=== PATIENT | female | born 1960 | race Caucasian/White ===

== ENCOUNTER → 2016-07-18 | Outpatient (CLI) | payer BC ==
[~2016-07-18] MED LIST: ALBUAER9 INH; TRAM-10 PO
== END | disposition home or self-care (01) ==
LOC: C.RDSM 13:48
PROVIDERS: ATTEND Family Medicine Sports Medicine
DX: M25.552 Pain in left hip (principal)

== ENCOUNTER → 2016-08-14 | Outpatient (CLI) | payer BC ==
--- NOTE | 2016-08-14 14:59 | DIAGNOSTIC IMAGING REPORT ---
CERVICAL SPINE 6 VIEWS HISTORY: Pain L40.9 YvahdblpmF97.50 QncnwqdwuhaczsE95.559 Chronic hip pain COMPARISON: None. FINDINGS: The cervical spine is visualized from C1 through the superior endplate of T1. There is no fracture. Mild reversal of the normal cervical curvature. Moderate degenerative disc change C5-C6. All remaining disc spaces are well-preserved. Prevertebral soft tissues and the atlantodens interval are intact. IMPRESSION: 1. Muscle spasm. 2. Moderate degenerative disc change C5-C6. 3. Otherwise negative study Electronically signed by: Ernie Almeida M.D. 08/14/2016 2:57 PM Dictated Date/Time: 08/14/2016 2:56 PM
--- NOTE | 2016-08-14 15:01 | DIAGNOSTIC IMAGING REPORT ---
LEFT HAND MIN 3 VIEWS ROUTINE, RIGHT HAND MIN 3 VIEWS ROUTINE CLINICAL HISTORY: L40.9 DkxeiamtrW91.50 NshilkkkctrcirC50.559 Chronic hip pain COMPARISON STUDY: Left hand 01/10/2013. FINDINGS: No fracture or dislocation within the right or left hand. Soft tissues are unremarkable. Cartilage spaces are maintained for age. No erosions. Bone mineralization is intact. IMPRESSION: Unremarkable bilateral hands. Electronically signed by: Arnoldo Ramirez M.D. 08/14/2016 2:59 PM Dictated Date/Time: 08/14/2016 2:57 PM
--- NOTE | 2016-08-14 15:01 | DIAGNOSTIC IMAGING REPORT ---
LEFT HAND MIN 3 VIEWS ROUTINE, RIGHT HAND MIN 3 VIEWS ROUTINE CLINICAL HISTORY: L40.9 LivpykjreP65.50 GvrkudznfhqkgjT77.559 Chronic hip pain COMPARISON STUDY: Left hand 01/10/2013. FINDINGS: No fracture or dislocation within the right or left hand. Soft tissues are unremarkable. Cartilage spaces are maintained for age. No erosions. Bone mineralization is intact. IMPRESSION: Unremarkable bilateral hands. Electronically signed by: Arnoldo Ramirez M.D. 08/14/2016 2:59 PM Dictated Date/Time: 08/14/2016 2:57 PM
--- NOTE | 2016-08-14 15:01 | DIAGNOSTIC IMAGING REPORT ---
SI JOINTS 3 OR MORE VIEWS CLINICAL HISTORY: L40.9 WlautaskfU98.50 TqkqmjkqpgotgiX11.559 Chronic hip pain pain COMPARISON STUDY: None FINDINGS: Mild degenerative changes of the sacral iliac joint bilaterally. Slight mid sacral sclerosis of the right. No significant bony ankylosis. Sacral foramina are symmetric. IMPRESSION: Mild degenerative change of the central right sacroiliac joint. Otherwise negative study Electronically signed by: Ernie Almeida M.D. 08/14/2016 2:59 PM Dictated Date/Time: 08/14/2016 2:58 PM
[2016-08-14 16:41] LABS: C-REACTIVE PROTEIN < 0.29 mg/dl (0-0.29); RHEUMATOID FACTOR < 10.0 U/mL (0-15); TOTAL IRON BINDING CAPACITY 298 mcg/dl (250-450)
[2016-08-20 02:35] LABS: ANTI-CENTROMERE AB <1.0 NEG AI (<1.0 NEG); ANTI-SS-A <1.0 NEG AI (<1.0 NEG); ANTI-SS-B <1.0 NEG AI (<1.0 NEG); DNA ds CRITHIDIA NEGATIVE (NEGATIVE); HLA-B27** TC 528X NEGATIVE (NEGATIVE); Sm Antibody <1.0 NEG AI (<1.0 NEG)
== END | disposition home or self-care (01) ==
LOC: C.RAD1850 14:15
PROVIDERS: ATTEND Internal Medicine Rheumatology
DX: L40.9 Psoriasis, unspecified (principal); M25.559 Pain in unspecified hip

== ENCOUNTER → 2016-08-15 | Outpatient (CLI) | payer BC ==
--- NOTE | 2016-08-15 14:56 | DIAGNOSTIC IMAGING REPORT ---
WHOLE BODY BONE SCAN HISTORY: L40.9 ZhdaqnwxsH05.50 FuuhipwietissbC24.559 Chronic hip painTota RADIOTRACER: 27.3 mCi Tc-99m MDP STUDY/IMAGES: Planar anterior and posterior whole body imaging was performed 3 hours following the intravenous administration of radiotracer. COMPARISON: Left hip 07/18/2016. Cervical spine 08/14/2016. FINDINGS: Focal areas of mild radiotracer uptake seen within the right mid cervical spine facets, right AC joint, and right superior hip. There is also moderate radiotracer uptake seen within the left hip. Small focal area of mild radiotracer uptake seen within the left heel. IMPRESSION: Scattered focal areas of radiotracer uptake as described above most pronounced within the left hip. The pattern favors osteoarthritis. Electronically signed by: Arnoldo Ramirez M.D. 08/15/2016 2:53 PM Dictated Date/Time: 08/15/2016 2:48 PM
== END | disposition home or self-care (01) ==
LOC: C.NUCL 10:43
PROVIDERS: ATTEND Internal Medicine Rheumatology
DX: L40.9 Psoriasis, unspecified (principal); M25.559 Pain in unspecified hip

== ENCOUNTER → 2016-08-16 | Outpatient (CLI) | payer BC ==
--- NOTE | 2016-08-16 15:07 | DIAGNOSTIC IMAGING REPORT ---
MRI THE LEFT HIP NO CONTRAST CLINICAL HISTORY: Increasing left hip pain. History of long-term steroid use. Osteoarthritis. Psoriasis. COMPARISON STUDY: Whole-body bone scan dated 08/15/2016, left hip dated 07/18/2016 FINDINGS: Imaging was performed in the coronal sagittal and axial planes. 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 There is no evidence for a pathologic joint effusion. There is joint space narrowing involving both hips. There are prominent subchondral cysts within the left acetabulum with reactive marrow edema. There is a small subchondral cyst within the right acetabulum. There are no findings to indicate avascular necrosis. There are no findings to indicate occult fracture. There is no evidence of pathologic intramuscular edema. IMPRESSION: 1. No evidence of avascular necrosis 2. No evidence of occult fracture 3. Arthritic changes involving each hip more severe on the left. There is joint space narrowing, and prominent subchondral acetabular cyst formation. There are small femoral head osteophytes more pronounced on the left. 4. Right gluteus minimus lipoma Electronically signed by: Taras Garcia M.D. 08/16/2016 3:05 PM Dictated Date/Time: 08/16/2016 2:58 PM
== END | disposition home or self-care (01) ==
LOC: C.MRI 13:47
PROVIDERS: ATTEND Family Medicine Sports Medicine
DX: M16.0 Bilateral primary osteoarthritis of hip (principal); D17.39 Benign lipomatous neoplasm of skin and subcutaneous tissue of other sites

== ENCOUNTER → 2016-09-06 | Outpatient (CLI) | payer BC | END | disposition home or self-care (01) | LOC: C.PAPS 12:34 | PROVIDERS: ATTEND Obstetrics & Gynecology | DX: Z12.4 Encounter for screening for malignant neoplasm of cervix (principal) ==

== ENCOUNTER → 2016-09-11 | Outpatient (CLI) | payer BC ==
--- NOTE | 2016-09-11 13:16 | MAMMOGRAPHY REPORT ---
BILATERAL DIGITAL SCREENING MAMMOGRAM TOMOSYNTHESIS WITH CAD: 09/11/2016 CLINICAL HISTORY: Routine screening. Patient has no complaints. TECHNIQUE: Bilateral breast tomosynthesis in addition to standard 2D mammography was performed. Curr ent study was also evaluated with a Computer Aided Detection (CAD) system. COMPARISON: Comparison is made to exams dated: 09/05/2015 mammogram, 09/02/2014 mammogram, 07/10/2013 ma mmogram, 07/09/2012 mammogram, 01/15/2011 mammogram, and 01/12/2010 mammogram - [facility] [address] enter. BREAST COMPOSITION: The tissue of both breasts is heterogeneously dense, which may obscure small ma sses. FINDINGS: There is an asymmetry in the superior posterior left breast on the MLO view, with possibl e associated architectural distortion. This is thought to project laterally based on the CC view. Although this could represent overlapping fibroglandular tissue, additional spot compression, synthe sis views and possibly ultrasound are recommended. There are scattered stable rounded punctate microcalcifications throughout the breasts. No other owens spicious mass, architectural distortion or cluster of microcalcifications is seen bilaterally. IMPRESSION: ACR BI-RADS CATEGORY 0: INCOMPLETE EVALUATION: NEED ADDITIONAL IMAGING EVALUATION The asymmetry in the superior, posterior left breast needs additional evaluation. The patient will be called to schedule an appointment. Approximately 10% of breast cancers are not detected with mammography. A negative mammographic repor t should not delay biopsy if a clinically suggestive mass is present. Kylee Moreno M.D. ay/:09/11/2016 08:23:03 Supervisor Cigar Processing: Diana LIZARRAGA(R)(M), [facility] letter sent: Addl Imaging 0 BI-RADS Code: ACR BI-RADS Category 0: Incomplete Evaluation: Need Additional Imaging Evaluation
== END | disposition home or self-care (01) ==
LOC: C.MAMM 07:49
PROVIDERS: ATTEND Obstetrics & Gynecology
DX: Z12.31 Encounter for screening mammogram for malignant neoplasm of breast (principal); N64.89 Other specified disorders of breast

== ENCOUNTER → 2016-09-20 | Outpatient (CLI) | payer BC ==
--- NOTE | 2016-09-20 14:07 | MAMMOGRAPHY REPORT ---
UNILATERAL LEFT DIGITAL DIAGNOSTIC MAMMOGRAM TOMOSYNTHESIS AND TARGETED LEFT ULTRASOUND: 09/20/2016 CLINICAL HISTORY: Callback from screening mammogram for left breast asymmetry. TECHNIQUE: Breast tomosynthesis in addition to standard 2D mammography was performed. Spot indiana chang left CC and MLO 2-D and tomosynthesis images were obtained. COMPARISON: Comparison is made to exams dated: 09/11/2016 mammogram, 09/05/2015 mammogram, 09/02/2014 ma mmogram, 07/10/2013 mammogram, 07/09/2012 mammogram, and 01/15/2011 mammogram - [facility] enter. BREAST COMPOSITION: The tissue of the left breast is heterogeneously dense, which may obscure small masses. FINDINGS: The previously described asymmetry seen within the left superior breast on the MLO view, thought to project laterally based on the cc view, effaces to a baseline appearance on the additiona l views, with appearance of this region similar to prior exams including the 2008 exam. No suspicio us mass or architectural distortion is noted on the additional views in this region. Targeted ultrasound was performed of the left upper outer quadrant in the region of the mammographic asymmetry. Sonographically normal tissue is seen, without evidence of a mass or other suspicious s onographic abnormality. IMPRESSION: ACR BI-RADS CATEGORY 2: BENIGN, TARGETED ULTRASOUND ACR BI-RADS CATEGORY 2: BENIGN The left breast asymmetry effaces to a baseline appearance on the additional views, without correspo nding suspicious sonographic abnormality evident. The asymmetry is benign and compatible with nikki l overlapping fibroglandular tissue. There is no mammographic or targeted sonographic evidence of m alignancy. A 1 year screening mammogram is recommended. The patient has been verbally notified of t he results. Approximately 10% of breast cancers are not detected with mammography. A negative mammographic repor t should not delay biopsy if a clinically suggestive mass is present. Lynn Michel M.D. /:09/20/2016 10:19:37 Stock Roller: Diana Gordillo, [facility] letter sent: Normal 1/2 BI-RADS Code: ACR BI-RADS Category 2: Benign Ultrasound BI-RADS: ACR BI-RADS Category 2: Benign
== END | disposition home or self-care (01) ==
LOC: C.MAMM 09:40
PROVIDERS: ATTEND Obstetrics & Gynecology
DX: N64.89 Other specified disorders of breast (principal)

== ENCOUNTER → 2017-01-03 | Outpatient (CLI) | payer BC ==
--- NOTE | 2017-01-03 14:16 | DIAGNOSTIC IMAGING REPORT ---
CHEST 2 VIEWS ROUTINE HISTORY: 57 years-old Female D69.3 Idiopathic thrombocytopenic [id number] acute productive cough with congestion. Initial exam. COMPARISON: Chest radiograph 01/05/2015 TECHNIQUE: PA and lateral views of the chest FINDINGS: Cardiomediastinal and hilar silhouettes are within normal limits. There is no pneumothorax, pleural effusion or focal airspace consolidation. There is no overt pulmonary edema. The bones are grossly intact. IMPRESSION: No acute cardiopulmonary process. The above report was generated using voice recognition software. It may contain grammatical, syntax or spelling errors. Electronically signed by: Garret Mcgowan M.D. 01/03/2017 2:15 PM Dictated Date/Time: 01/03/2017 2:14 PM
--- NOTE | 2017-01-03 14:23 | DIAGNOSTIC IMAGING REPORT ---
SINUSES MIN 3 VIEWS ROUTINE CLINICAL HISTORY: D69.3 Idiopathic thrombocytopenic [id number] cough. Pain. COMPARISON STUDY: None FINDINGS: Near complete opacification of the left with complete opacification of the right maxillary sinus. Mild mucosal thickening of the ethmoid sinuses. No evidence for bony destructive process. IMPRESSION: Bilateral maxillary and to lesser extent ethmoid sinusitis. The above report was generated using voice recognition software. It may contain grammatical, syntax or spelling errors. Electronically signed by: Ernie Almeida M.D. 01/03/2017 2:22 PM Dictated Date/Time: 01/03/2017 2:15 PM
[2017-01-03 16:12] LABS: HEMATOCRIT 41.5 % (37-47); MEAN CELL VOLUME 94.3 fL (80-100); MEAN CORPUSCULAR HEMOGLOBIN 31.1 pg (25-34); MEAN PLATELET VOLUME 12.8 fL (7.4-10.4); PLATELET COUNT 101 K/uL (130-400); WHITE BLOOD COUNT 16.43 K/uL (4.8-10.8)
[2017-01-03 16:13] LABS: BASO % 0.5 %; BASO ABS # 0.08 K/uL (0-0.2); COMPLETE YES; DOHLE BODIES 1+; ECHINOCYTES 1+; EOS % 1.5 %; IG% 0.2 %; LARGE PLATELETS 1+; LYMPH % 21.1 %; LYMPH ABS # 3.47 K/uL (1.2-3.4); MONO % 8.8 %; NEUT % 67.9 %; PLT ESTIMATE DECREASED; TEAR DROP CELLS 1+
== END | disposition home or self-care (01) ==
LOC: C.RAD1850 13:46
PROVIDERS: ATTEND Physician Assistant
DX: D69.3 Immune thrombocytopenic purpura (principal)

== ENCOUNTER → 2017-02-25 | Outpatient (CLI) | payer BC | END | disposition home or self-care (01) | LOC: C.RDSM 13:00 | PROVIDERS: ATTEND Physical Medicine & Rehabilitation Sports Medicine | DX: M25.552 Pain in left hip (principal) ==

== ENCOUNTER → 2017-05-10 | Outpatient (CLI) | payer BC, OTHER ==
[~2017-05-10] MED LIST changes: +ALBUAER INH; +IBUP-103 PO; +IVIG; +RTXI100
[2017-05-10 11:36] LABS: PTT PATIENT 25.7 SECONDS (21.0-31.0)
== END | disposition home or self-care (01) ==
LOC: C.LABSPEC 11:09
PROVIDERS: ATTEND Physician Assistant
DX: Z01.812 Encounter for preprocedural laboratory examination (principal); Z01.810 Encounter for preprocedural cardiovascular examination; M16.12 Unilateral primary osteoarthritis, left hip

== ENCOUNTER → 2017-05-15 | Outpatient (CLI) | payer BC ==
[~2017-05-15] MED LIST changes: -ALBUAER9 INH; -TRAM-10 PO
--- NOTE | 2017-05-15 14:15 | DIAGNOSTIC IMAGING REPORT ---
R SHOULDER MIN 2 VIEWS ROUTINE CLINICAL HISTORY: M79.603 right shoulder pain status post trauma COMPARISON: None. DISCUSSION: No acute fractures or dislocations are visualized. Degenerative changes are present within the AC joint with mild erosive changes involving the articular margins. IMPRESSION: No fractures or dislocations identified. Electronically signed by: Taras Garcia M.D. 05/15/2017 2:14 PM Dictated Date/Time: 05/15/2017 2:13 PM
--- NOTE | 2017-05-15 14:29 | DIAGNOSTIC IMAGING REPORT ---
R FOREARM 2 VIEWS ROUTINE HISTORY: 57 years-old Female M25.529 Pain, joint, upper armM79.603 Arm [id number] acute right arm pain status post fall COMPARISON: None available TECHNIQUE: 2 views of the right forearm FINDINGS: No acute fracture, significant degenerative changes or subluxation identified. Radial head appears intact. No opaque foreign body. No large elbow joint effusion. IMPRESSION: No acute fracture or subluxation. The above report was generated using voice recognition software. It may contain grammatical, syntax or spelling errors. Electronically signed by: Garret Mcgowan M.D. 05/15/2017 2:28 PM Dictated Date/Time: 05/15/2017 2:26 PM
== END | disposition home or self-care (01) ==
LOC: C.RAD1850 14:01
PROVIDERS: ATTEND Physician Assistant
DX: M25.529 Pain in unspecified elbow (principal); M79.601 Pain in right arm

== ENCOUNTER → 2017-05-16 | Outpatient (CLI) | payer BC ==
--- NOTE | 2017-05-16 14:07 | PULMONARY FUNCTION TEST ---
Pre-bronchodilator spirometry suggests the presence of minimal small airways disease. There was a modest response post-bronchodilator suggesting the presence of early reversible airways disease. Lung volumes and diffusion capacity were well within normal limits. Clinical correlation is needed.
== END | disposition home or self-care (01) ==
LOC: C.RC 09:25
PROVIDERS: ATTEND Physician Assistant
DX: D69.3 Immune thrombocytopenic purpura (principal); N30.00 Acute cystitis without hematuria; R93.8 Abnormal findings on diagnostic imaging of other specified body structures

== ENCOUNTER 2017-06-04 05:02 | Inpatient (IN) | payer BC, OTHER ==
[2017-05-10 09:56] VITALS: BMI 31.0
--- NOTE | 2017-05-10 10:34 | PAT Medication Instructions ---
Service Date May 10, 2017. Current Home Medication List Albuterol Sulfate (Proventil Hfa), 2 PUFFS INH UD Ibuprofen Tab (Advil), 400 MG PO UD PRN for PRN Rituximab (Rituxan), Unknown Dose UD [Ivig], Unknown Dose UD Medication Instructions For Your Scheduled Surgery - Hold the following medications 5 days prior to surgery per surgeon's instructions: Ibuprofen Tab (Advil), 400 MG PO UD PRN for PRN - Take the following medications the morning of surgery: Albuterol Sulfate (Proventil Hfa), 2 PUFFS INH UD (use if needed; BRING TO HOSPITAL) *nothing to eat or drink after midnight* If you have any questions please call us at [phone] or [phone] or [phone]
--- NOTE | 2017-05-15 16:21 | HISTORY & PHYSICAL EXAMINATION ---
DATE OF ADMISSION: 06/05/2017 CHIEF COMPLAINT: Left hip pain. HISTORY OF PRESENT ILLNESS: This 57-year-old white female presents to the office with complaints of left hip pain that has been ongoing for over a year. She has tried activity modification, oral anti-inflammatories, and cortisone injections without lasting relief. X-ray and MRI have been obtained. Pain is worse with weightbearing. It is affecting her ADLs. She denies any numbness or tingling. She elects to proceed with total hip arthroplasty in hopes of alleviating her discomfort. 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 She does note some loss of motion. PAST MEDICAL HISTORY: Significant for history of bronchitis, pneumonia, history of ITP, obesity, osteoarthritis, and history of chemotherapy. PAST SURGICAL HISTORY: Splenectomy in 1996, in 1987, tubal ligation in 1989. SOCIAL HISTORY: The patient is . No tobacco use, rare ETOH use. FAMILY HISTORY: Significant for nonalcoholic cirrhosis, lymphoma, and prolactinoma. ALLERGIES: KNOWN ALLERGY TO BACTRIM, ERYTHROMYCIN, AND QUINOLONE DRUGS, which caused platelet destruction. Also, ALLERGIC TO TYLENOL WHICH CAUSES HIVES. CURRENT MEDICATIONS: Proventil HFA 2 puffs q.i.d. p.r.n., Flovent 110 mcg 2 puffs b.i.d., immunoglobulin IV. She does require significant prophylactic medication when receiving blood product transfusions. Also takes rituximab and tramadol 50 mg p.o. b.i.d. p.r.n. REVIEW OF SYSTEMS: Significant for above stated conditions, otherwise unremarkable. PHYSICAL EXAMINATION: GENERAL: Well-developed, well-nourished middle aged white female in no acute distress. Sitting in a chair. Alert and oriented. SKIN: Warm and dry with good turgor. No rashes or lesions. No ecchymosis or erythema. HEAD, EYES, EARS, NOSE, AND THROAT: Normocephalic, atraumatic. Eyes PERRLA, EOMI. Nares patent bilaterally without turbinate enlargement. Oropharynx without erythema or exudate. No lesions noted. Uvula midline. Oral mucosa moist. Fair dentition. Multiple fillings are noted. EARS: TMs intact bilaterally with good light reflexes. No erythema or bulging. Left TM is slightly injected. HEART: RRR. No MGR. LUNGS: Clear to auscultation bilaterally. No crackles, rhonchi or wheezing. Good air movement. ABDOMEN: Bowel sounds present x4, soft, nontender. No organomegaly. No masses. MUSCULOSKELETAL: Left hip has no obvious asymmetry or deformity. She has local discomfort with palpation over the anterior flexion crease. She also has some mild discomfort with palpation over the greater trochanter. Hip pain increases with passive and active motion. Flexion to just over 90 degrees, internal and external rotation are limited secondary to pain. Intact motor function to the knee and ankle. NEUROLOGIC: Gross sensation is intact across the left leg via soft touch. Peripheral pulses are 2+. DATA: Radiographic imaging previously obtained shows end-stage DJD of the left hip with AVN and subchondral cysts. Periarticular osteophytes, subchondral sclerosis, and joint space narrowing are present. 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 PLAN: Postoperative prescriptions for OxyIR will be provided at discharge from the hospital. We will need to speak with her software engineer sales about potential Coumadin use. She will obtain medical clearance from her software engineer sales and PCP. Preoperative lab work, EKG, and chest x-ray have been ordered. She has access to a walker. She would like to be discharged to home with 2 weeks of home health services and then outpatient PT.
[2017-06-04] VITALS (10 sets, daily range): BP systolic 125–144; BP diastolic 75–85; PULSE 60–76; TEMP 36.4–37.1; O2SAT 92–100; Ht 170.2 cm; Wt 90.8 kg
[~2017-06-04] VITALS: Ht 170.2 cm; Wt 90.8 kg
[2017-06-04] MEDS ORDERED: LACTATED RINGER'S 1000ML IV SCH (06:00)
[2017-06-04] MEDS ORDERED: CEFAZOLIN 2000MG IV PUSH 15 ML IV SCH (06:00)
[2017-06-04] MEDS ORDERED: LACTATED RINGER'S 1000ML 1,000 ML IV SCH (06:00)
[2017-06-04] MEDS ORDERED: ROPIVACAINE 5MG/ML 30 ML 150 MG, BUPIVACAINE/EPINEPHR 0.5% MPF 30 ML, KETOROLAC TROMETH... INFIL SCH ×7 (06:00)
[2017-06-04] MEDS ORDERED: TRANEXAMIC ACID INJ 1,000 MG in SYRINGE 0 ML IV SCH (06:00)
[2017-06-04] MEDS ORDERED: LACTATED RINGER'S 1000ML 500 ML IV SCH (06:00)
[2017-06-04] MEDS ORDERED: BUPIVACAINE 0.5 % 5 MG/1 ML PF 10ML VIAL ONE (06:25)
[2017-06-04] MEDS ORDERED: POVIDONE-IODINE OP SOLN 30 ML BTL ONE (06:32)
[2017-06-04] MEDS ORDERED: ORTHO JOINT ANESTHETIC ONE (06:32)
--- NOTE | 2017-06-04 06:37 | History & Physical Bridge Note ---
H&P Re-Evaluation Bridge Note: I have examined the patient, reviewed the History & Physical and in the interval since the performance of the History & Physical I have noted the following changes of clinical significance: consent obtained all questions answered.No changes noted
[2017-06-04] MEDS ORDERED: DEXAMETHASONE SOD INJ 4 MG/ML VIAL ONE (06:40)
[2017-06-04] MEDS ORDERED: PROPOFOL IV EMULSION 10 MG/ML 20 ML VIAL IV ONE (06:40)
[2017-06-04] MEDS ORDERED: ONDANSETRON INJ 2 MG/ML 2 ML VIAL ONE (06:40)
[2017-06-04] MEDS ORDERED: MIDAZOLAM HCL 1 MG/ML 2ML VIAL ONE (06:40)
[2017-06-04] MEDS ORDERED: LIDOCAINE HCL 2% 2 ML VIAL (20MG/ML) ONE (06:40)
[2017-06-04] MEDS ORDERED: FENTANYL CITRATE INJ 50 MCG/1 ML 2 ML VIAL ONE (06:40)
--- NOTE | 2017-06-04 08:30 | [facility] Post Operative Brief Note ---
Immediate Operative Summary Operative Date Jun 04, 2017. Pre-Operative Diagnosis Left Hip End-Stage Degenerative Joint Disease with Avascular Necrosis Post-Operative Diagnosis Left Hip End-Stage Degenerative Joint Disease with Avascular Necrosis Procedure(s) Performed Left Total Hip Arthroplasty--Uncemented Surgeon Dr. Palma Self Storage Manager Surgeon(s) HUNTER Mccord Estimated Blood Loss 100 ml Findings Consistent with Post-Op Diagnosis Fluids (cc crystalloids) 2000cc Specimens A. Left Femoral Head Drains None Anesthesia Type Spinal MAC Complication(s) none Disposition Disposition: Recovery Room / PACU
[2017-06-04] MEDS ORDERED: NALOXONE HCL 0.4 MG/1 ML VIAL/CARP IV PRN (08:45)
[2017-06-04] MEDS ORDERED: PHENYLEPHRINE 100MCG/ML 5ML SYR IV PRN (08:45)
[2017-06-04] MEDS ORDERED: ALUMINUM/MAGNESIUM/SIMETH (MAALOX MAX) 30 ML UDC PO PRN (08:45)
[2017-06-04] MEDS ORDERED: FLUMAZENIL 0.1 MG/1 ML 10 ML VIAL IV PRN (08:45)
[2017-06-04] MEDS ORDERED: ONDANSETRON INJ 2 MG/ML 2 ML VIAL IV PRN (08:45)
[2017-06-04] MEDS ORDERED: EpHEDrine SULFATE INJ 50 MG/ML AMP IV PRN (08:45)
[2017-06-04] MEDS ORDERED: DiphenhydrAMINE HCL 50 MG/ML VIAL IV PRN (08:45)
[2017-06-04] MEDS ORDERED: MoRPHine SULFATE 2 MG/ML CARP IV PRN (08:45)
[2017-06-04] MEDS ORDERED: FENTANYL CITRATE INJ 50 MCG/1 ML 2 ML VIAL IV PRN (08:45)
[2017-06-04] MEDS ORDERED: METOCLOPRAMIDE HCL INJ 5 MG/ML 2 ML VIAL IV PRN (08:45)
[2017-06-04] MEDS ORDERED: ALBUTEROL HFA 8 GM INHALER INH PRN (08:45)
[2017-06-04] MEDS ORDERED: MEPERIDINE HCL 25 MG/ML CARP IV PRN (08:45)
[2017-06-04] MEDS ORDERED: ATROPINE SULFATE 0.1 MG/ML 5ML SYR IV PRN (08:45)
[2017-06-04] MEDS ORDERED: HYDROmorphone INJ 2 MG/ML SYR/VIAL IV PRN (08:45)
[2017-06-04] MEDS ORDERED: LABETALOL HCL IV 5 MG/ML 20ML IV PRN (08:45)
[2017-06-04] MEDS ORDERED: MAGNESIUM HYDROXIDE SUSP 30 ML UDC PO PRN (08:45)
--- NOTE | 2017-06-04 08:46 | OPERATIVE REPORT ---
DATE OF OPERATION: 06/04/2017 SURGEON: Antelmo Palma MD. FRENCH CORD BINDER: Franklyn Regalado PA-C. SECOND FRENCH CORD BINDER: shalini Hurtado student. PREOPERATIVE DIAGNOSIS: Avascular necrosis osteoarthritis, left hip. POSTOPERATIVE DIAGNOSIS: Same. OPERATION PERFORMED: Noncemented left total hip replacement. PERIOPERATIVE SITUATION: Medically cleared female with ITP who has been seen and cleared by her insulation worker furnace installer who has severe disease of her hip including AVN wishes to proceed with surgical treatment at her request based on chronic pain. She was made aware of all the consequences. DESCRIPTION OF THE PROCEDURE: The patient appropriately identified, site verified, consent verified, 2 grams of Ancef confirmed as being given. The left lower extremity was prepped and draped in the right lateral decubitus position. A posterior approach to the hip was made. Sharp dissection carried through the skin and blunt dissection down to the fascia. This was then incised under direct vision. Charnley retractor placed. Care taken to protect the sciatic nerve. Short external rotators identified and released. The capsule T'd. Serial reaming then carried on after the labrum was excised up to a 50 and a 50 cup impacted into appropriate anteversion and inclination with excellent position with a good rim fit. It was then secured with a 6.5 x 30 screw with excellent bite. Trial liner was then seated. The femur was then flexed and internally rotated. The proximal femur delivered into the wound and using the crepe box tender, the proximal femur was then prepared with the lateralizing rasp and serial broaching up to a size 3 high offset. Trial reduction was then carried out and a +9 head gave appropriate leg lengths. The stability was excellent. It was 32 mm. The hip was then dislocated, then copiously irrigated with Betadine, Pulsavac. The trial liner removed. The irrigation repeated. The hole eliminator seated, the permanent liner seated. The permanent stem and head seated and the hip reduced. It was then closed after irrigation with Betadine and then Pulsavac with #2 Vicryl for the capsule and the short external rotators and the same stitch for the IT band and the gluteus ari fascia. The area was then injected with Orthomix 40 mL and then wound closed with 2-0 Vicryl and stainless steel clips. Appropriate dressing applied. SUMMARY OF IMPLANTS: Size 50 cup acetabular shell sector hole eliminator, 6.5 x 30 screw, 32 x 50 neutral liner, 3 high offset Tri-Lock and a +9 32 head. ESTIMATED BLOOD LOSS: 100 mL. CRYSTALLOID: 2000 mL. Deep venous thrombosis prophylaxis per hematology, will verify with Coumadin. During the procedure it should be mentioned that during the exposure the femoral neck was resected using template leaving appropriate head and neck. Once this was done, appropriate excision of the labrum and the reaming carried out as noted above. I attest to the content of the Intraoperative Record and any orders documented therein. Any exception s are noted below.
--- NOTE | 2017-06-04 09:38 | DIAGNOSTIC IMAGING REPORT ---
PELVIS 1 OR 2 VIEW ROUTINE CLINICAL HISTORY: s/p Left hip MICHAEL hip arthroplasty COMPARISON: None. DISCUSSION: Anatomic alignment status post total left hip arthroplasty. Good contact between prosthetic and underlying bone. Expected soft tissue postoperative change. IMPRESSION: Anatomic alignment status post total left hip arthroplasty. The above report was generated using voice recognition software. It may contain grammatical, syntax or spelling errors. Electronically signed by: Ernie Almeida M.D. 06/04/2017 9:36 AM Dictated Date/Time: 06/04/2017 9:36 AM
--- NOTE | 2017-06-04 09:42 | Anesthesiology Progress Note ---
Anesthesia Post Op Note Date & Time Jun 04, 2017 at 09:41 Vital Signs Pain Intensity: 0 Vital Signs Past 12 Hours Date Time Temp Pulse Resp B/P (MAP) Pulse Ox O2 Delivery O2 Flow Rate FiO2 06/04/17 09:35 36.6 58 13 129/66 97 Nasal Cannula 2 06/04/17 09:25 60 13 133/75 99 Nasal Cannula 2 06/04/17 09:15 58 15 128/79 99 Nasal Cannula 2 06/04/17 09:05 56 13 125/74 99 Nasal Cannula 2 06/04/17 08:55 58 13 117/69 99 Nasal Cannula 2 06/04/17 08:45 57 15 108/67 98 Nasal Cannula 2 06/04/17 08:36 36.2 67 18 110/50 95 Nasal Cannula 2 06/04/17 05:40 37.1 76 20 141/75 100 Room Air Notes Mental Status: alert / awake / arousable, participated in evaluation Pt Amnestic to Procedure: Yes Nausea / Vomiting: adequately controlled Pain: adequately controlled Airway Patency, RR, SpO2: stable & adequate BP & HR: stable & adequate Hydration State: stable & adequate Neuraxial Anesthesia: was administered, sensory block is resolving Anesthetic Complications: no major complications apparent
[2017-06-04] MEDS ORDERED: D5W AND 1/2NSS + 20MEQ KCL 1,000 ML IV SCH (10:30)
--- NOTE | 2017-06-04 10:55 | [facility] Operative Report ---
Operative Report Operative Date Jun 04, 2017. Pre-Operative Diagnosis Left Hip End-Stage Degenerative Joint Disease with Avascular Necrosis Post-Operative Diagnosis Left Hip End-Stage Degenerative Joint Disease with Avascular Necrosis Procedure(s) Performed Left Total Hip Arthroplasty--Uncemented Surgeon Dr. Palma Pony Trimmer Surgeon(s) HUNTER Celaya Estimated Blood Loss 100 ml Findings left hip DJD with AVN Fluids 2000cc Specimens A. Left Femoral Head Drains None Anesthesia Type Spinal MAC Complication(s) none Disposition Recovery Room / PACU Indications This 57-year-old white female presented the office with complaints of intractable left hip pain. She had tried conservative care measures including activity modification without success. She elected to proceed with surgical intervention after being educated about potential risks and outcomes. Preoperative imaging was obtained. Description of Procedure Patient was administered a spinal anesthetic and then taken to the operating room where she was given sedation. She was prepped and draped in usual sterile fashion. Please see Dr. Palma's operative report for specifics of the procedure. I was present for the entire case from initial patient positioning through final wound closure. Assistance was provided in tissue traction, hemostasis, trial implant placement, final implant placement, and final wound closure. Patient was taken to the recovery room in satisfactory condition. I attest to the content of the Intraoperative Record and any orders documented therein. Any exceptions are noted below.
--- NOTE | 2017-06-04 11:29 | HISTORY & PHYSICAL EXAMINATION ---
DATE OF ADMISSION: 06/04/2017 This is level 2 inpatient consultation, 25 minutes. PHYSICIAN REQUESTING CONSULTATION: Dr. Palma. REASON FOR CONSULTATION: Medical management postop left hip procedure. HISTORY OF PRESENT ILLNESS: The patient is a 57-year-old white female who was admitted to Dr. Palma's service because of left hip pain. She has chronic left hip pain associated with a lot of discomfort. 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 Therefore, procedure for the left hip was done today which was left total hip arthroplasty. When I interviewed the patient, she was awake, alert and orientated, conversational, following all commands, no any discomfort. Denied fever or chill, denied cough, sputum or shortness of breath, denied chest pain or palpitation, no extremity swelling, denied nausea, vomiting, abdominal pain, diarrhea or constipation, denied dysuria, urgency or frequencies. Reported lower extremity still is numb, no feelings. Denied facial droop, slurry speech or local weakness. ALLERGIES: ACETAMINOPHEN, ERYTHROMYCIN, QUINOLONE, SULFA ANTIBIOTICS, SULFAMETHOXAZOLE WITH TRIMETHOPRIM. PAST MEDICAL HISTORY: Significant for bronchitis, pneumonia, history of ITP, follows up with Dr. Jackson, obesity, osteoarthritis and history of chemotherapy because of ITP. PAST SURGICAL HISTORY: Includes splenectomy, , tubal ligation and today's left hip arthroplasty. SOCIAL HISTORY: The patient is . Denied tobacco abuse disorder, denied alcohol abuse disorder, denied illicit drug abuse. FAMILY HISTORY: Significant for nonalcoholic cirrhosis, lymphoma and prolactinoma. MEDICATIONS: Currently taking include Proventil 2 puffs q.i.d. as needed for shortness of breath, Flovent 110 mcg 2 puffs b.i.d., IVIG, she is taking rituximab and tramadol 50 mg p.o. b.i.d. as needed. REVIEW OF SYSTEMS: Please see HPI. Otherwise, 14-point organ system reviewed and negative. PHYSICAL EXAMINATION: GENERAL: Awake, alert, orientated, conversational, pleasant, follows all commands. HEAD: Normocephalic. EYES: Pupils equal, round, responds to light. EARS: Normal. NOSE: Normal. NECK: Supple. Thyroid, no enlargement. Trachea midline. HEART: Regular rhythm, S1, S2, has no murmur, no gallop, no rubs. LUNGS: Decreased breathing sounds. There is no wheezing, rhonchi or crackles. ABDOMEN: Soft, nontender. Bowel sounds positive. There is no organomegaly, no masses. MUSCULOSKELETAL: Left hip is in dress currently. Right lower extremity, no limited range of motion. Bilateral lower extremities, there is no swelling. Homans sign is negative. Calf is nontender. SKIN: Looks normal and warm. Capillary refill is in normal range. NEUROLOGICAL: Cranial nerve II-XII is intact. There are no local deficits. RECENT LABORATORY STUDIES: On 05/10/2017, WBC 6.8, hemoglobin 15, platelet 343. PT/INR was 10/1. BMP was within normal limits. Liver function test was within normal limits. Urine on 05/31/2017 was negative. Lab studies include pelvic x-ray on 06/04/2017 which is today, that was showing anatomical alignment status post total left hip arthroplasty. ASSESSMENT AND PLAN: A 57-year-old female admitted to Dr. Palma's service because of left hip pain. She had left total hip arthroplasty today. For this condition, pain management, DVT prophylaxis, PT/OT and discharge plan will be per primary team. The patient is currently doing well. She has a history of bronchitis, history of ITP. We will continue current care such as using Proventil inhaler as needed, continue Flovent 2 puffs b.i.d. For now, I feel her condition of ITP is stable. Will continue to follow up. Tomorrow morning lab was sent by primary team. Thank you for the chance to involve in the care of your patient. We will continue to follow up. BARBARA
[2017-06-04] MEDS: OXYCODONE HCL IR 5 MG TAB (IMMEDIATE RELEASE) PO PRN ×2 (11:39→20:19)
[2017-06-04] MEDS: ONDANSETRON INJ 2 MG/ML 2 ML VIAL IV PRN ×2 (11:40→20:19)
[2017-06-04] MEDS: PANTOprazole SOD 40 MG TAB PO SCH (12:45)
[2017-06-04] MEDS: MULTIVITAMIN TAB PO SCH (12:46)
[2017-06-04] MEDS: FERROUS GLUCONATE 324 MG TAB PO SCH ×2 (12:47→17:55)
[2017-06-04] MEDS: KETOROLAC TROMETHAMINE 15 MG/ML VIAL IV. SCH ×3 (15:13→23:56)
[2017-06-04] MEDS ORDERED: WARFARIN SOD 5 MG TAB PO ONE (16:00)
[2017-06-04] MEDS: CEFAZOLIN IV 2,000 MG in SYRINGE 0 ML IV SCH ×2 (16:28→23:56)
--- NOTE | 2017-06-04 17:14 | PROGRESS NOTE ---
DATE: 06/04/2017 Postop check, is doing well. Denies any chest pain, shortness of breath, fever, chills, nausea, vomiting or headache. Vital signs are stable. She is afebrile. Femoral sciatic nerve function intact. Wound dressing is clean, dry and intact. She is up and about. At this point in time, we will discontinue IV fluids. She is eating well. Post op x-rays look good; Mobilize. Coumadin per nomogram. MTDD
[2017-06-04] MEDS: DOCUSATE SODIUM 100 MG CAP PO SCH (20:20)
[2017-06-05 03:15] VITALS: BP 112/63; PULSE 58; TEMP 36.8; O2SAT 94
[2017-06-05] MEDS: KETOROLAC TROMETHAMINE 15 MG/ML VIAL IV. SCH (06:02)
--- NOTE | 2017-06-05 06:43 | PROGRESS NOTE ---
DATE: 06/05/2017 Postop check status post left total hip replacement. The patient is sitting up in chair, feels comfortable, has no nausea, vomiting, is moving around well. She walked at the hallway last night. She is concerned about trying to get out with the weather if she can get a ride, I told her that will not be a problem. We will to have keep her here to be safe. Vital signs are stable. She is afebrile. Neurovascular check, femoral sciatic nerve is normal. Wound dressing clean, dry and intact. A.m. labs are pending. ASSESSMENT: Overall, doing well. Await laboratory work. Coumadin per routine. Get nomogram today and discharge on 4 mg if INR is 1.5 or less and 2 mg if INR is 1.6 or greater. Hold if INR is greater than 2.2. Potential discharge today if whether permits.
--- NOTE | 2017-06-05 06:51 | DISCHARGE SUMMARY ---
Conditional weather permitting. CHIEF COMPLAINT: Left hip pain. HISTORY OF PRESENT ILLNESS: A 57-year-old female with complex medical history, particularly AVN and ITP who has been on high dose steroids for years who presents with AVN and hip arthritis of the left hip. Wants to proceed with left hip replacement at her request. Risks as noted. Hospital course has been uneventful. She tolerated the hip replacement well. PAST MEDICAL HISTORY: As noted for bronchitis, pneumonia, ITP, obesity, osteoarthritis chemotherapy. PAST SURGICAL HISTORY: Remarkable for splenectomy, , tubal ligation. SOCIAL HISTORY: Reveals she is . No tobacco only rare alcohol use. FAMILY HISTORY: Significant for nonalcoholic cirrhosis, lymphoma and prolactinoma. ALLERGIES: BACTRIM, ERYTHROMYCIN, QUINOLONE DRUGS WHICH CAUSE PLATELET DYSFUNCTION. ALLERGIC TO TYLENOL, WHICH CAUSES HIVES. CURRENT MEDICATIONS: Include Proventil, Flovent, immunoglobulin for prophylactic medication receiving blood transfusions, rituximab and tramadol p.r.n. She will continue all of those medications as prescribed by other providers and tramadol for pain for the hip. She will also be on Coumadin for blood clots and embolism protection for roughly 4 weeks. REVIEW OF SYSTEMS: Noncontributory. ASSESSMENT: Status post left total hip replacement, has done well. The a.m. labs are pending. If weather permits and she is continuing to do this well, will discharge today. ADDENDUM: Coumadin 4 mg if INR is 1.5 or less, 2 mg if INR is 1.6 or greater and hold if INR is greater than or equal to 2.2.
[2017-06-05 07:05] VITALS: BP 132/85; PULSE 59; TEMP 36.7; O2SAT 98
[2017-06-05 07:30] LABS: BASO % 0.1 %; BASO ABS # 0.01 K/uL (0-0.2); EOS % 0.1 %; EOS ABS # 0.01 K/uL (0-0.5); HEMATOCRIT 45.2 % (37-47); HEMOGLOBIN 15.2 g/dL (12.0-16.0); IG# 0.04 K/uL (0.00-0.02); LYMPH % 15.9 %; LYMPH ABS # 2.06 K/uL (1.2-3.4); MEAN CELL VOLUME 93.2 fL (80-100); MEAN CORPUSCULAR HEMOGLOBIN 31.3 pg (25-34); MEAN CORPUSCULAR HGB CONC 33.6 g/dl (32-36); MEAN PLATELET VOLUME 11.9 fL (7.4-10.4); MONO ABS # 1.17 K/uL (0.11-0.59); NEUT % 74.6 %; NUCLEATED RED BLOOD CELL ABS 0.02 K/uL (0-0); PLATELET COUNT 296 K/uL (130-400); RED CELL DISTRIBUTION WIDTH CV 14.6 % (11.5-14.5); RED CELL DISTRIBUTION WIDTH SD 49.4 fL (36.4-46.3); WHITE BLOOD COUNT 12.99 K/uL (4.8-10.8)
[2017-06-05] MEDS ORDERED: DEXAMETHASONE INJ 10 MG in SYRINGE 0 ML IV SCH (07:30)
[2017-06-05 07:57] LABS: CALCIUM 9.1 mg/dl (8.5-10.1); CREATININE 0.97 mg/dl (0.60-1.20); POTASSIUM 4.2 mmol/L (3.5-5.1)
[2017-06-05] MEDS: DOCUSATE SODIUM 100 MG CAP PO SCH (08:21)
[2017-06-05] MEDS: MULTIVITAMIN TAB PO SCH (08:21)
[2017-06-05] MEDS: FERROUS GLUCONATE 324 MG TAB PO SCH ×2 (08:21→12:08)
[2017-06-05] MEDS: PANTOprazole SOD 40 MG TAB PO SCH (08:22)
[2017-06-05] MEDS: OXYCODONE HCL IR 5 MG TAB (IMMEDIATE RELEASE) PO PRN ×2 (08:26→12:21)
[2017-06-05] MEDS ORDERED: OXYC1TAB3 PO (09:14)
[2017-06-05] MEDS ORDERED: WARF2TAB PO (09:14)
--- NOTE | 2017-06-05 09:16 | Discharge Instructions ---
Discharge Instructions Date of Service Jun 05, 2017. Admission Reason for Admission: Left Hip Avascular Necrosis, Degenerative Joint Di Discharge Discharge Diagnosis / Problem: left hip s/p total hip replacement Discharge Goals Goal(s): Decrease discomfort, Improve function, Increase independence Activity Recommendations Activity Limitations: as noted below Lifting Limitations: gradually increase as tolerated Exercise/Sports Limitations: until after follow-up appointment Shower/Bathe: keep incision dry Driving or Machine Use: No driving until cleared by Dr. Palma Weightbearing Status: Left weightbearing (as tolerated) . Instructions / Follow-Up Instructions / Follow-Up New Medicine: * You will likely be taking one or more of these medicines: 1. Oxycodone - Take, as directed, when you need it, every four to six hours to control your pain. 2. Coumadin - Thins your blood to lessen the chance of forming a blood clot. The dose of this is different for each person and is based on your blood tests that are done twice a week. * The most common side effects of pain medicine and iron are nausea and constipation. If nausea or constipation is too much of a problem or if you have any questions about your new medicines or doses, call [facility] at . We will try to help you manage these issues. VERY IMPORTANT TO READ AND REVIEW" Blood Clots and Blood Thinning Medicine: * You are given Coumadin during the immediate post-operative period to lessen the risk of blood clots forming in your legs and/or lungs. Coumadin is usually given for six weeks after surgery. * The prescription is for 2 mg tablets. At discharge, you should understand your dose and take it all at the same time every day, preferably after dinner. * You need to get your blood checked 1 - 2 times per week for six weeks, or as directed. * If your dose needs to change, we will call you. Do not take your medication on the day of the blood test until we call you. * If you don't hear from us after your blood draws, keep taking the same dose. Pain: * The immediate post-operative period after hip replacement surgery is often quite painful. * You are given a prescription for pain medicine. You should take it, as directed, when you need it, especially before physical therapy and before going to bed. Pain that interferes with sleep is very common and can last several months. * You will likely need pain medicine for the first two to four weeks. It will not stop all of the pain. The pain will lessen and as you feel better, you may change to milder pain medicine such as Tylenol. * The most common side effects of pain medicine are nausea and constipation, so don't take more than you need. Physical Therapy: * Follow the "Hip Precautions Instructions." * In some cases, the psychiatric social worker at the hospital will arrange to have a therapist come to your house for the first couple of weeks to help you learn these skills. * You need to practice on your own or with the help of a family member as needed. * When you learn these skills, most of the therapy can be done on your own. Home Exercise: * You were shown a series of exercises in the hospital. Do these exercises three to four times each day including the exercises you were shown in physical therapy. Walking: * Get up and walk several times each day. For the first four weeks, try not to stand or walk for more than one hour at a time. If you do stand or walk for more than one hour, you will not hurt anything, but your leg will likely swell. * As you feel comfortable, you may change from the walker or crutches to a cane and then to independent walking. SELF CARE INSTRUCTIONS AFTER TOTAL HIP REPLACEMENT Until the incision and soft tissues around your hip have healed, there is a possibility that the hip prosthesis could dislocate. A. Observe the following precautions to prevent dislocation: 1. Don't bend your hip greater than 90 degrees. 2. Avoid crossing your legs or ankles while standing or lying. 3. Sit with your feet placed 6 inches apart. 4. When sitting, keep your knees below your hips. Sit on a firm surface, avoid deep, soft chairs and couches. Use an elevated toilet seat in the bathroom. 5. Don't bend over at the waist. Use a long handled shoehorn and a sock aid to help you put on your shoes and socks. A modern greek studies professor can help you pick pack worker objects that are too high or too low to reach. 6. Keep car riding to a minimum for at least one month after surgery. B. Your balance may be shaky for a while. Use crutches or a walker until directed by your doctor. C. Use hand rails when walking on stairs. D. Wear low heeled shoes with non-slip soles. E. Be sure that your floors are free of things that could trip you - throw rugs , electrical cords, small objects. Avoid wet and waxed floors, especially with crutches and canes. F. Try to walk several times a day with rest periods between. G. Continue with all the exercises taught to you in the hospital. Again, make walking a part of your daily routine. VERY IMPORTANT TO READ AND REVIEW A. Take Coumadin, or Lovenox (blood thinning medications) as directed by your doctor. If you are on Coumadin, have a pro-time (blood test) drawn according to your doctor's instructions. This will tell the doctor how well the Coumadin is thinning your blood. B. There are a few signs you need to watch for after you are home. If you notice any of the followin. Increased severe hip pain. Some pain is expected especially when you exercise. 2. Increased swelling in your leg or knee; pain or swelling of the calf muscle in either lower leg. 3. Any fluid drainage from the incision. 4. Shortness of breath or chest pain. TEDs/Elastic Stockings: * The white elastic stockings help limit swelling and prevent blood clots from forming in your legs. The more you wear them, the more they work. * Wear them for six weeks. Prevention of Infection: * Take antibiotics one hour before any dental cleaning, dental work, urological procedure, gastrointestinal procedure or any invasive surgery in order to prevent your new joint from getting infected. * You may get the antibiotics from the doctor performing the procedure or we will call in a prescription to the pharmacy of your choice. Call the office for a prescription at least 2 days prior to your appointment. Things to Watch For: * Drainage from the incision site that occurs more than one week after your surgery. * Severely increased leg pain or swelling. * Increased redness at the incision site. * Fever above 101 degrees Fahrenheit. * Unusual chest pain or shortness of breath. * Unusual pain or burning with urination. Current Hospital Diet Patient's current hospital diet: Regular Diet Discharge Diet Recommended Diet: Regular Diet Procedures Procedures Performed: Left Total Hip Arthroplasty--Uncemented Pending Studies Studies pending at discharge: no Medical Emergencies . Who to Call and When: Medical Emergencies: If at any time you feel your situation is an emergency, please call 911 immediately. . Non-Emergent Contact Non-Emergency issues call your: Primary Care Provider, Surgeon Call Non-Emergent contact if: temperature is above 101, wound has increased drainage, wound has increased redness, wound has increased pain, you have any medication questions . "Provider Documentation" section prepared by Franklyn Regalado PA-C. . VTE Core Measure Inpt VTE Proph given/why not?: Warfarin (Coumadin), TLayla Stockelliott, SCD's [place] Drug Monitoring Program Search Results: no issues identified
--- NOTE | 2017-06-05 10:18 | Orthopedic Progress Note ---
Orthopedic Progress Note Date of Service Jun 05, 2017. Subjective Post OP Day: 1 Reports: feeling well, pain controlled w PO medications, Denies: complaints, chest pain, SOB, nausea / vomiting, light headedness, calf pain Additional Notes: Has been out of bed. Pain is well controlled with 1 percocet according to pt. Objective calves soft nontender, N/V intact, hip located, capillary refill less than 2 sec., dressing C/D/I, incision C/D/I, A&O x3, toes mobile, CMS intact Scant drainage on dressings. No active drainage. Date Time Temp Pulse Resp B/P (MAP) Pulse Ox O2 Delivery O2 Flow Rate FiO2 06/05/17 07:15 Room Air 06/05/17 07:05 36.7 59 19 132/85 (101) 98 Room Air 06/05/17 03:15 36.8 58 16 112/63 (79) 94 Room Air 06/04/17 23:55 Room Air 06/04/17 23:05 36.8 65 16 134/76 (95) 95 Room Air 06/04/17 19:53 36.9 63 18 131/82 (98) 95 Room Air 06/04/17 15:25 98 Room Air 06/04/17 15:16 37.0 67 16 142/85 (104) 94 Room Air 06/04/17 12:57 75 18 125/81 (96) 92 Room Air 06/04/17 11:59 36.7 67 19 132/78 (96) 96 Nasal Cannula 2.0 06/04/17 10:58 36.4 60 19 137/81 (99) 100 Nasal Cannula 2.0 06/04/17 10:31 61 18 144/84 (104) 99 Nasal Cannula 2.0 Laboratory Results 24 Hours: Test 06/05/17 06:52 White Blood Count 12.99 K/uL Red Blood Count 4.85 M/uL Hemoglobin 15.2 g/dL Hematocrit 45.2 % Mean Corpuscular Volume 93.2 fL Mean Corpuscular Hemoglobin 31.3 pg Mean Corpuscular Hemoglobin Concent 33.6 g/dl Platelet Count 296 K/uL Mean Platelet Volume 11.9 fL Neutrophils (%) (Auto) 74.6 % Lymphocytes (%) (Auto) 15.9 % Monocytes (%) (Auto) 9.0 % Eosinophils (%) (Auto) 0.1 % Basophils (%) (Auto) 0.1 % Neutrophils # (Auto) 9.70 K/uL Lymphocytes # (Auto) 2.06 K/uL Monocytes # (Auto) 1.17 K/uL Eosinophils # (Auto) 0.01 K/uL Basophils # (Auto) 0.01 K/uL Prothromb Time International Ratio 1.0 Prothrombin Time 10.2 SECONDS Assessment & Plan Assessment: Left hip s/p total hip arthroplasty, post op day 1 Plan: PT/OT today Dressing changed this morning-wound looks very good Follow up in the office in 2 weeks for staple removal. coumadin per nomogram Anticipate D/C this afternoon. Discharge Planning Discharge Planning: home with home health Pain Management: Oxy IR DVT Prophylaxis: TEDs, SCDs, Coumadin Therapy: Physical Therapy
[2017-06-05 11:53] VITALS: BP 132/85; PULSE 59; TEMP 36.7; O2SAT 98
[2017-06-05] MEDS ORDERED: WARFARIN SOD 5 MG TAB PO ONE (16:00)
== END 2017-06-05 14:46 | disposition home health service (06) | DRG 470 ==
LOC: C.ACU 05:02 → C.3E 06:20 → ENRESERV 09:41
PROVIDERS: ADMIT Physical Medicine & Rehabilitation Sports Medicine; ATTEND Physical Medicine & Rehabilitation Sports Medicine
PROC: 0SRE0JA Replacement of Left Hip Joint, Acetabular Surface with Synthetic Substitute, Uncemented, Open Approach (ICD-10-PCS; principal; 2017-06-04 07:00)
DX: M16.12 Unilateral primary osteoarthritis, left hip (principal); M87.059 Idiopathic aseptic necrosis of unspecified femur; D69.3 Immune thrombocytopenic purpura; E66.9 Obesity, unspecified; Z98.51 Tubal ligation status; Z68.31 Body mass index [BMI] 31.0-31.9, adult; Z87.01 Personal history of pneumonia (recurrent); Z88.6 Allergy status to analgesic agent; Z88.1 Allergy status to other antibiotic agents

== ENCOUNTER → 2017-06-24 | Outpatient (CLI) | payer BC, OTHER ==
[~2017-06-24] MED LIST changes: -IBUP-103 PO; +OXYC1TAB3 PO; +WARF2TAB PO
== END | disposition home or self-care (01) ==
LOC: C.LAB 11:39
PROVIDERS: ATTEND Physician Assistant
DX: Z96.642 Presence of left artificial hip joint (principal); Z51.81 Encounter for therapeutic drug level monitoring

== ENCOUNTER → 2017-07-01 | Outpatient (CLI) | payer BC ==
[2017-07-01 11:45] LABS: INR 2.4 (0.9-1.1)
== END | disposition home or self-care (01) ==
LOC: C.LAB 10:29
PROVIDERS: ATTEND Physician Assistant
DX: Z96.642 Presence of left artificial hip joint (principal); Z51.81 Encounter for therapeutic drug level monitoring; Z79.01 Long term (current) use of anticoagulants

== ENCOUNTER → 2017-07-08 | Outpatient (CLI) | payer BC ==
[2017-07-08 11:18] LABS: INR 1.6 (0.9-1.1)
== END | disposition home or self-care (01) ==
LOC: C.LAB 15:26
PROVIDERS: ATTEND Physician Assistant
DX: Z96.642 Presence of left artificial hip joint (principal); Z51.81 Encounter for therapeutic drug level monitoring

== ENCOUNTER → 2017-08-05 | Outpatient (CLI) | payer BC | END | disposition home or self-care (01) | LOC: C.RDSM 17:44 | PROVIDERS: ATTEND Physical Medicine & Rehabilitation Sports Medicine | DX: Z96.642 Presence of left artificial hip joint (principal) ==

== ENCOUNTER → 2017-09-13 | Outpatient (CLI) | payer BC ==
--- NOTE | 2017-09-16 15:10 | MAMMOGRAPHY REPORT ---
BILATERAL DIGITAL SCREENING MAMMOGRAM TOMOSYNTHESIS WITH CAD: 09/13/2017 CLINICAL HISTORY: Routine screening. Patient has no complaints. TECHNIQUE: Breast tomosynthesis in addition to standard 2D mammography was performed. Current study was also evaluated with a Computer Aided Detection (CAD) system. COMPARISON: Comparison is made to exams dated: 09/20/2016 ultrasound, 09/20/2016 mammogram, 09/11/2016 mammogram, 09/05/2015 mammogram, 09/02/2014 mammogram, and 07/09/2012 mammogram - [facility]ter. BREAST COMPOSITION: The tissue of both breasts is heterogeneously dense, which may obscure small mas ses. FINDINGS: No suspicious masses, calcifications, or areas of architectural distortion are noted in ei ther breast. There has been no significant interval change compared to prior exams. IMPRESSION: ACR BI-RADS CATEGORY 1: NEGATIVE There is no mammographic evidence of malignancy. A 1 year screening mammogram is recommended. The pa tient will receive written notification of the results. Approximately 10% of breast cancers are not detected with mammography. A negative mammographic report should not delay biopsy if a clinically suggestive mass is present. Lynn Michel M.D. /:09/13/2017 15:35:23 Pilot: Katlin LIZARRAGA(Rodrick)(Portia), [facility] letter sent: Normal 1/2 BI-RADS Code: ACR BI-RADS Category 1: Negative
== END | disposition home or self-care (01) ==
LOC: C.MAMM 08:37
PROVIDERS: ATTEND Family Medicine
DX: Z12.31 Encounter for screening mammogram for malignant neoplasm of breast (principal)

== ENCOUNTER → 2017-09-13 | Outpatient (CLI) | payer BC ==
--- NOTE | 2017-09-13 12:04 | DIAGNOSTIC IMAGING REPORT ---
R ANKLE MIN 3 VIEWS ROUTINE HISTORY: 57 years-old Female PAIN IN RIGHT ANKLE AND JOINTS OF RIGHT FOOT acute right ankle pain COMPARISON: None available TECHNIQUE: 4 views of the right ankle. FINDINGS: Mild soft tissue prominence about the lower leg and ankle. No large joint effusion. 9 mm bone island of the calcaneal body. Moderate enthesophyte about the plantar calcaneus. No acute fracture, dislocation or osteochondral defect. Note is made of an os peroneum. IMPRESSION: Mild soft tissue swelling without fracture. The above report was generated using voice recognition software. It may contain grammatical, syntax or spelling errors. Electronically signed by: Garret Mcgowan M.D. 09/13/2017 12:02 PM Dictated Date/Time: 09/13/2017 12:00 PM
== END | disposition home or self-care (01) ==
LOC: C.RAD1850 11:43
PROVIDERS: ATTEND Nurse Practitioner Family
DX: M25.571 Pain in right ankle and joints of right foot (principal)

== ENCOUNTER 2024-06-29 23:52 | Inpatient (IN) ==
--- NOTE | 2024-06-30 00:57 | Emergency Department Note ---
Impression & Plan Shortness of breath, Asthma with exacerbation ED Provider Note NAME: ARMAND GOODMAN AGE: 64 SEX: Female INFORMANT: Patient ED PROVIDER(S): Eliecer Chavira MD CHIEF COMPLAINT: Shortness of breath PLAN: Disposition: Admitted Outpatient prescription management: none Referral: None MEDICAL DECISION MAKING: Patient presented because of shortness of breath and difficulty breathing. On examination she had poor air movement and had significant inspiratory expiratory wheezing. She was maintaining her O2 saturations above 90. She was started on a hour-long DuoNeb, given IV Solu-Medrol, and received IV magnesium. Patient had a significant leukocytosis on CBC. More so than expected with her discontinuation of steroids several days ago. Patient had some congestion noted on chest imaging without lobar infiltrate. Chemistry panel was unremarkable. ECG showed a normal sinus rhythm without acute ischemia. No dysrhythmia on cardiac monitoring. On reassessment the patient was feeling somewhat improved. She still had decreased air movement and wheezing on the right greater than the left. Given the patient's duration of illness, her lack of response to maximum outpatient therapy, and her presentation here tonight further management in the hospital was felt to be appropriate. Consultation was made with Dr. Harry of the [facility] service. Case discussed and diagnostics were reviewed. Patient was evaluated in the ER for further management. 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 Vital Signs: reviewed and remarkable for hypertension Additional History obtained from: none Chronic Medical/Social Conditions affecting care: Asthma Prior/ Outside/ External records reviewed: none Differential Diagnosis: Reactive airway disease, pneumonia, pneumothorax, COPD, CHF, infections, cardiac ischemia, pulmonary embolism, musculoskeletal, gastrointestinal, as well as other pathologies. Diagnostics, independently interpreted by me: ECG: Twelve-lead ECG reveals normal sinus rhythm at 90 beats per minute. No evidence of pericarditis, ischemia, ectopy, or dysrhythmia. Cardiac Monitoring: Cardiac monitoring ordered by me: The patient was placed on continuous cardiac monitoring and observed. It revealed a normal sinus rhythm at 85 beats per minute without ectopy or evidence of dysrhythmia. Medical decision rules: none Imaging studies: Chest x-ray. Findings: A chest x-ray was performed and revealed no pneumothorax, effusion, infiltrate, pulmonary edema, free air under the diaphragm, or wide mediastinum. HPI: 64 year old Female arrives for evaluation of shortness of breath. This started about 4 weeks ago and is worsening over the last week. The patient also notes the following associated symptoms, chest tightness, cough, fatigue. The patient has been using her inhalers and nebulizers for relieving factors. Current pain is rated as 0/10. Patient has a history of asthma. Patient notes that she was treated with Augmentin and steroids previously last month. Pt denies LOC, headache, fevers, chills, diaphoresis, visual changes, neck pain, chest pain, nausea, vomiting, abdominal pain, back pain, melena, hematochezia, urinary symptoms, numbness, weakness, lymphadenopathy, rash, or other complaints. . PAST MEDICAL HISTORY: See Below, asthma PAST SURGICAL HISTORY: See Below, SOCIAL HISTORY: See Below, HOME MEDICATIONS: See Below ALLERGIES: See Below VITALS: See Below PHYSICAL EXAMINATION: GENERAL: Awake, alert, mildly dyspneic-appearing, in no distress HENT: Normocephalic, atraumatic. Oropharynx unremarkable. EYES: Normal conjunctiva. Sclera non-icteric. NECK: Inspection normal. Non-tender. Supple. No nuchal rigidity. FROM. No masses. RESPIRATORY: Decreased air movement bilaterally. Insight-oriented Tory wheezes present. Increased respiratory effort. CARDIAC: Normal rate. Normal rhythm. No murmurs. No rubs. Extremities warm and well perfused. Pulses equal. No JVD. GI: Soft, non-distended. No tenderness to palpation. No rebound or guarding. No masses. RECTAL: Deferred. MUSCULOSKELETAL: Atraumatic. Chest examination reveals no tenderness. The back is symmetrical on inspection without obvious abnormality. There is no CVA tenderness to palpation. No joint edema. LOWER EXTREMITIES: Calves are equal size bilaterally and non-tender. No edema. No discoloration. NEURO: Normal sensorium. No sensory or motor deficits noted. SKIN: No rash or jaundice noted. 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 Beliefs That Will Affect Care: None marital status: Current Living Situation: Spouse Feels Safe at Home: Yes Allergies Allergies Allergy/AdvReac Type Severity Reaction Status Date / Time Sulfa (Sulfonamide Allergy Severe ITCHINESS Verified 12/06/23 11:34 Antibiotics) acetaminophen Allergy Intermediate HIVES Verified 12/06/23 11:34 erythromycin base Allergy Intermediate CHEST PAINS Verified 12/06/23 11:34 sulfamethoxazole AdvReac Severe GI UPSET Verified 12/06/23 11:34 trimethoprim AdvReac Severe GI UPSET Verified 12/06/23 11:34 Quinolones AdvReac Intermediate DESTROY Verified 12/06/23 11:34 PLATELETS Home Meds Home Medications Medication Instructions Recorded Confirmed triamcinolone acetonide 0.1 % 1 applic topical DAILY PRN .flare 02/08/21 06/30/24 topical cream ups ibuprofen 200 mg tablet (Advil) 400 mg PO Q6H PRN Pain 12/06/23 06/30/24 amoxicillin 875 mg-potassium 1 tab PO Q12 06/30/24 06/30/24 clavulanate 125 mg tablet budesonide-formoterol HFA 160 2 puff inhalation BID 06/30/24 06/30/24 mcg-4.5 mcg/actuation aerosol inhaler Previous Rx's Medication Instructions Recorded ipratropium 0.5 mg-albuterol 3 mg 3 ml inhalation QID PRN shortness 04/09/19 (2.5 mg base)/3 mL nebulization of breath or wheezing #180 mL soln albuterol sulfate 90 mcg/actuation 2 puff inhalation Q6H PRN 05/02/20 aerosol inhaler (Ventolin HFA) Shortness Of Breath Or Wheezing #18 grams Results & Data (ED) Vital Signs Vital Signs - 24 hr 06/30/24 00:01 06/30/24 00:35 06/30/24 00:35 Temperature 36.6 C Temperature Source Oral Pulse Rate 91 H Blood Pressure 156/90 H Blood Pressure Mean 112 Pulse Oximetry 91 92 92 Oxygen Delivery Method Room Air Room Air Room Air Sepsis Recent Fever Within 48 Hours No Sepsis New/Unexplained Change in Mental Status No Sepsis Action Taken by Nursing No Action Required 06/30/24 00:46 Temperature Temperature Source Pulse Rate 83 Blood Pressure Blood Pressure Mean Pulse Oximetry Oxygen Delivery Method Sepsis Recent Fever Within 48 Hours Sepsis New/Unexplained Change in Mental Status Sepsis Action Taken by Nursing Laboratory Data 06/30/24 00:53 06/30/24 00:53 Lab Results 06/30/24 Range/Units 00:53 WBC 17.98 H (4.8-10.8) K/ul RBC 5.30 (4.20-5.40) M/uL Hgb 16.3 H (12.0-16.0) g/dl Hct 48.3 H (37.0-47.0) % MCV 91.1 (80.0-100.0) fL MCH 30.8 (25.0-34.0) pg MCHC 33.7 (32.0-36.0) g/dL RDW Std Deviation 49.5 H (36.4-46.3) fL RDW Coeff of Arlene 14.8 H (11.5-14.5) % Plt Count 463 H (130-400) K/uL MPV 10.4 (9.4-12.4) fL Immature Gran % (Auto) 0.4 % Neut % (Auto) 65.6 % Lymph % (Auto) 21.9 % Walsh % (Auto) 7.5 % Eos % (Auto) 4.2 % Baso % (Auto) 0.4 % Neut # (Auto) 11.80 H (1.40-6.50) K/uL Lymph # (Auto) 3.93 H (1.20-3.40) K/uL Walsh # (Auto) 1.34 H (0.11-0.59) K/uL Eos # (Auto) 0.75 H (0.00-0.50) K/uL Baso # (Auto) 0.08 (0.00-0.20) K/uL Immature Gran # (Auto) 0.08 (0.01-0.20) K/uL Sodium 139 (136-145) mmol/L Potassium 4.4 (3.5-5.1) mmol/L Chloride 106 (98-107) mmol/L Carbon Dioxide 28 (21-32) mmol/L Anion Gap 5 (3-11) BUN 19 (6-23) mg/dl Creatinine 1.10 (0.6-1.2) mg/dl Est Cr Clr Drug Dosing 60.6 ml/min eGFR 56.46 BUN/Creatinine Ratio 17.3 (10-20) Glucose 125 H (70-99(Fasting)) mg/dl Calcium 9.6 (8.6-10.3) mg/dl Magnesium 2.1 (1.7-2.4) mg/dl Total Bilirubin 0.6 (0.2-1.0) mg/dl AST 43 H (13-39) U/L ALT 49 (7-52) U/L Alkaline Phosphatase 132 H (34-104) U/L Troponin I High Sens 8.7 (0-14) pg/ml B-Natriuretic Peptide 42 (0-100) pg/ml Total Protein 7.4 (6.0-8.3) gm/dl Albumin 4.7 (3.4-5.0) gm/dl Globulin 2.7 (2.5-4.0) gm/dl Albumin/Globulin Ratio 1.7 (0.9-2) Administered Medications Magnesium Sulfate/Dextrose (Magnesium Sulfate / D5w) 1 gm in 100 mls @ 50 mls/hr IV ONE ONE Stop: 06/30/24 02:37 Last Admin: 06/30/24 01:03 Dose: 50 mls/hr Documented By: ED Discontinued Medications Albuterol (Albut/Ipratrop 3mg/0.5mg Neb 3 Ml Vial) 12 ml NEB ONE ONE; Protocol Stop: 06/30/24 00:39 Last Admin: 06/30/24 01:04 Dose: 12 ml Documented By: ED Methylprednisolone (Methylprednisolone 125 Mg/2 Ml Vial) 125 mg IV NOW STA Stop: 06/30/24 00:39 Last Admin: 06/30/24 01:03 Dose: 125 mg Documented By: ED Imaging Data Radiologist's Impression: Chest X-Ray 06/30/24 00:26 EXAM: XR chest 1V portable CLINICAL HISTORY: Dyspnea TECHNIQUE: An X-ray image of the chest is obtained in AP projection. COMPARISON: 05/28/2024. FINDINGS: Pulmonary Parenchyma: Lungs show prominent bronchovascular markings with peribronchial cuffing. Left upper zone pulmonary nodule. No evidence of consolidation, collapse, or focal opacities. No evidence of pleural effusion or pleural thickening. Heart and Mediastinum: Heart size and shape are normal. No mediastinal widening or masses. No hilar or mediastinal lymphadenopathy. Bony Thorax: Bony thorax appears intact without fractures or deformities. Soft Tissues: Soft tissues overlying the chest wall are unremarkable. IMPRESSION: 1. No gross airspace opacities. 2. Prominent perihilar bronchovascular markings. 3. Left upper zone pulmonary nodule. 4. No interval changes. Electronically signed by Ana Lilia Harry 06-30-2024 01:56 AM Discharge Plan Visit Data Chief Complaint: Respiratory Problems Stated Complaint: TROUBLE BREATHING,COUGH ED Provider: Eliecer Chavira Discharge Problem: Shortness of breath, Asthma with exacerbation Forms Stand Alone Forms: [facility] Prescriptions Prescriptions: No Action ipratropium-albuterol 0.5 mg-3 mg(2.5 mg base)/3 mL solution for nebulization 3 ml INH QID PRN (Reason: shortness of breath or wheezing) Qty: 180 2RF albuterol sulfate [Ventolin HFA] 90 mcg/actuation HFA aerosol inhaler 2 puff INHALATION Q6H PRN (Reason: Shortness Of Breath Or Wheezing) Qty: 18 5RF triamcinolone acetonide 0.1 % cream 1 applic topical DAILY PRN (Reason: .flare ups) ibuprofen [Advil] 200 mg Tablet 400 mg PO Q6H PRN (Reason: Pain) amoxicillin-pot clavulanate 875-125 mg tablet 1 tab PO Q12 budesonide-formoterol 160-4.5 mcg/actuation HFA aerosol inhaler 2 puff INHALATION BID Referrals Referrals: Austin Cui MD [Primary Care Provider] -
[2024-06-30] MEDS: MAGNESIUM SULFATE / D5W 1 GM/100 ML BAG IV ONE ×2 (01:03→08:58)
[2024-06-30] MEDS: methylPREDNISolone 125 MG/2 ML VIAL IV STA (01:03)
[2024-06-30] MEDS: ALBUT/IPRATROP 3MG/0.5MG NEB 3 ML VIAL NEB ONE (01:04)
[2024-06-30 01:14] LABS: Basophils # (auto) 0.08 K/uL (0.00-0.20); Basophils % (auto) 0.4 %; Eosinophils # (auto) 0.75 K/uL (0.00-0.50); Eosinophils % (auto) 4.2 %; Hematocrit (blood only) 48.3 % (37.0-47.0); Hemoglobin 16.3 g/dl (12.0-16.0); Immature Granulocytes # (auto) 0.08 K/uL (0.01-0.20); Immature Granulocytes % (auto) 0.4 %; Lymphocytes # (auto) 3.93 K/uL (1.20-3.40); Lymphocytes % (auto) 21.9 %; Mean Corpuscular Hemoglobin 30.8 pg (25.0-34.0); Mean Corpuscular Hgb Conc 33.7 g/dL (32.0-36.0); Mean Corpuscular Volume 91.1 fL (80.0-100.0); Mean Platelet Volume 10.4 fL (9.4-12.4); Monocytes # (auto) 1.34 K/uL (0.11-0.59); Monocytes % (auto) 7.5 %; Neutrophils % (auto) 65.6 %; Platelet Count 463 K/uL (130-400); RDW Coefficient of Variation 14.8 % (11.5-14.5); RDW Standard Deviation 49.5 fL (36.4-46.3); White Blood Count 17.98 K/ul (4.8-10.8)
[2024-06-30 01:28] LABS: Albumin Globulin Ratio 1.7 (0.9-2); Albumin Level 4.7 gm/dl (3.4-5.0); BUN Creatinine Ratio 17.3 (10-20); Bilirubin,Total 0.6 mg/dl (0.2-1.0); Calcium 9.6 mg/dl (8.6-10.3); Creatinine Clr Calc Pharmacy 60.6 ml/min; Globulin 2.7 gm/dl (2.5-4.0); Magnesium 2.1 mg/dl (1.7-2.4); Potassium 4.4 mmol/L (3.5-5.1); Total Protein 7.4 gm/dl (6.0-8.3)
[2024-06-30 01:34] LABS: Troponin I High Sensitivity 8.7 pg/ml (0-14)
[2024-06-30 01:55] LABS: Adenovirus PCR Not Detected (NotDetected); Bordetella parapertussis PCR Not Detected (NotDetected); Bordetella pertussis PCR Not Detected (NotDetected); Chlamydia pneumoniae PCR Not Detected (NotDetected); Coronavirus 229E PCR Not Detected (NotDetected); Coronavirus CoV-2 (COVID19)PCR Not Detected (NotDetected); Coronavirus HKU1 PCR Not Detected (NotDetected); Coronavirus NL63 PCR Not Detected (NotDetected); Coronavirus OC43PCR Not Detected (NotDetected); Human Metapneumovirus PCR DETECTED (NotDetected); Influenza A PCR Not Detected (NotDetected); Influenza B PCR Not Detected (NotDetected); Mycoplasma pneumoniae PCR Not Detected (NotDetected); Parainfluenza Virus 1 PCR Not Detected (NotDetected); Parainfluenza Virus 2 PCR Not Detected (NotDetected); Parainfluenza Virus 3 PCR Not Detected (NotDetected); Parainfluenza Virus 4 PCR Not Detected (NotDetected); Respiratory Syncytial VirusPCR DETECTED (NotDetected); Rhinovirus/Enterovirus PCR Not Detected (NotDetected)
--- NOTE | 2024-06-30 01:56 | XRay Report ---
EXAM: XR chest 1V portable CLINICAL HISTORY: Dyspnea TECHNIQUE: An X-ray image of the chest is obtained in AP projection. COMPARISON: 05/28/2024. FINDINGS: Pulmonary Parenchyma: Lungs show prominent bronchovascular markings with peribronchial cuffing. Left upper zone pulmonary nodule. No evidence of consolidation, collapse, or focal opacities. No evidence of pleural effusion or pleural thickening. Heart and Mediastinum: Heart size and shape are normal. No mediastinal widening or masses. No hilar or mediastinal lymphadenopathy. Bony Thorax: Bony thorax appears intact without fractures or deformities. Soft Tissues: Soft tissues overlying the chest wall are unremarkable. IMPRESSION: 1. No gross airspace opacities. 2. Prominent perihilar bronchovascular markings. 3. Left upper zone pulmonary nodule. 4. No interval changes. Electronically signed by Ana Lilia Harry 06-30-2024 01:56 AM
[2024-06-30] MEDS: cefTRIAXone SODIUM 2,000 MG/50 ML BAG IV STA (02:13)
[2024-06-30] MEDS: DOXYCYCLINE HYCLATE 100 MG in DEXTROSE 5% MINI-B 100 ML IV STA (03:01)
--- NOTE | 2024-06-30 03:04 | History & Physical Report ---
Date of Service June 30, 2024 Assessment & Plan (1) Asthma with exacerbation: (2) Shortness of breath: (3) ITP (idiopathic thrombocytopenic purpura): (4) History of splenectomy: Plan 64 yo female PMHx asthma, immune thrombocytopenic purpura, asplenia, diverticulitis admitted due to shortness of breath. #Asthma Exacerbation/?Pneumonia Duonebs q6h scheduled Solumedrol 40mg IV BID Mucinex BID Incentive spirometry, flutter valve Will give one additional gram magnesium Supplemental O2 as needed for goal sat >/= 92% Will continue ceftriaxone and doxycycline for now - low threshold to discontinue given +RVP for RSV and human metapneumovirus #ITP Currently with thrombocytosis Will avoid chemical DVT prophylaxis FENGI: Regular Code status: full DVT prophylaxis: SCDs, defer chemical prophylaxis Isolation: droplet Disposition: med/tele History of Present Illness Primary Care Provider: Austin Cui MD 64 yo female PMHx asthma, immune thrombocytopenic purpura, asplenia, diverticulitis admitted due to shortness of breath. Roughly 4 weeks ago the patient began with shortness of breath, cough, chest tightness, and fatigue. She was seen 3 times as an outpatient and under went treatment with Augmentin for a total of 20 days in the last month. She completed a course of azithromycin. She also completed a 5 day taper course of prednisone. Over the last week she has felt her symptoms have been worsening. She has been using her albuterol inhaler, Symbicort, and nebulizer at home without improvement in her symptoms. At the time of admission she is resting comfortably while receiving DuoNeb treatment. She states that she is feeling somewhat better since admission to the emergency department. ED Course: Labs reveal leukocytosis, thrombocytosis, RVP: +RSV, +human metapneumovirus Given 1hr long Duoneb treatment 125mg Solumedrol 1g Mag Ceftriaxone and doxycycline CXR: perihilar congestion, no discrete consolidation Allergies Allergy/AdvReac Type Severity Reaction Status Date / Time Sulfa (Sulfonamide Allergy Severe ITCHINESS Verified 12/06/23 11:34 Antibiotics) acetaminophen Allergy Intermediate HIVES Verified 12/06/23 11:34 erythromycin base Allergy Intermediate CHEST PAINS Verified 12/06/23 11:34 sulfamethoxazole AdvReac Severe GI UPSET Verified 12/06/23 11:34 trimethoprim AdvReac Severe GI UPSET Verified 12/06/23 11:34 Quinolones AdvReac Intermediate DESTROY Verified 12/06/23 11:34 PLATELETS Home Medications Medication Instructions Recorded Confirmed Type ipratropium 0.5 mg-albuterol 3 mg 3 ml inhalation QID PRN shortness 04/09/19 06/30/24 Rx (2.5 mg base)/3 mL nebulization of breath or wheezing #180 mL soln albuterol sulfate 90 mcg/actuation 2 puff inhalation Q6H PRN 05/02/20 06/30/24 Rx aerosol inhaler (Ventolin HFA) Shortness Of Breath Or Wheezing #18 grams triamcinolone acetonide 0.1 % 1 applic topical DAILY PRN .flare 02/08/21 06/30/24 History topical cream ups ibuprofen 200 mg tablet (Advil) 400 mg PO Q6H PRN Pain 12/06/23 06/30/24 History amoxicillin 875 mg-potassium 1 tab PO Q12 06/30/24 06/30/24 History clavulanate 125 mg tablet budesonide-formoterol HFA 160 2 puff inhalation BID 06/30/24 06/30/24 History mcg-4.5 mcg/actuation aerosol inhaler Past Med/Surg History Problem List (Updated 06/30/24 @ 00:56 by Eliecer Chavira MD) Asthma with exacerbation (Acute) Shortness of breath (Acute) Letty-prosthetic femoral shaft fracture Asthma Acute bronchitis Eczema ITP (idiopathic thrombocytopenic purpura) (Chronic) Acute diverticulitis DJD (degenerative joint disease) of hip Family History Other Family history non-contributory Social History Smoking Status: Never smoker Hx Alcohol Use: No Hx Substance Use: No Preferred Language: Ukrainian Communication Ability: Effective 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 Beliefs That Will Affect Care: None marital status: Current Living Situation: Spouse Feels Safe at Home: Yes Safety Concerns: Feels Safe At This Time Review of Systems Review of Systems: reviewed, per HPI Physical Exam Physical Exam: Constitutional: well-appearing, no acute distress HEENT: NCAT, no conjunctival injection CV: regular rhythm, no murmur appreciated, extremities well-perfused, no LE edema Resp: +decreased air movement, +global expiratory wheeze GI: soft, nondistended, nontender, BS normoactive MSK: no gross deformities appreciated Skin: warm, dry, no rash appreciated Neuro: alert, oriented, no focal neurologic deficit appreciated Results & Data Results & Data Vital Signs (Past 12 Hours) Vital Signs Temp Pulse Resp BP Pulse Ox O2 Del Method O2 Flow Rate 06/30/24 02:48 85 L Room Air, Nasal Cannula 0 06/30/24 01:45 85 22 139/100 98 06/30/24 00:46 83 06/30/24 00:35 92 Room Air 06/30/24 00:35 92 Room Air 06/30/24 00:01 36.6 C 91 H 156/90 H 91 Room Air Code Status & VTE Plan VTE Prophylaxis Plan VTE Prophylaxis will be ordered: Yes Supervising Physician Co-Signing Physician Notes Patient seen and examined, chart reviewed, case discussed with Dr. Andujar and I agree with the assessment and plan as above. Patient is a 64yo female with history of asthma, fairly well controlled at baseline. Has had ongoing SOB and wheeze - managed outpatient with steroids, antibiotics. Persistent and progressive symptoms. Notes improvement with treatments given in ER On exam she is AA&O, answering questions appropriately, NAD Skin - no rash HEENT - MMM, Neck supple Heart - +S1/S2, regular, no m/r/g Lungs - improved air movement, diffuse end-expiratory wheezing, no rhonchi Abd - soft, NT/ND Ext - no edema Labs and images reviewed +RSV and + Human metapneumovirus CXR with no infiltrate Assessment/Plan - acute exacerbation of asthma secondary to viral infection, RSV and HMPV -Scheduled and PRN nebs -Solumedrol -Mucines, flutter valve, pulmonary toilet -Continue antibiotics for now, Ceftriaxone/Doxycycline -Remainder as above Resident Activity Tracking Resident Involvement: Resident Care Provided Care Provided: Adult Hospital Medicine
[2024-06-30 05:09] LABS: Appearance Urine Clear (Clear); Bilirubin Urine Negative (Negative); Blood Urine Negative (Negative); Color Urine Yellow; Glucose Urine UA Negative (Negative); Ketones Urine Negative (Negative); Leukocyte Esterase Urine Negative (Negative); Nitrite Urine Negative (Negative); Protein Urine Negative (Negative); Specific Gravity Urine 1.011 (1.000-1.030); Urobilinogen Urine Negative (Negative); pH Urine 5.5 (4.5-7.5)
[2024-06-30] MEDS ORDERED: MAGNESIUM HYDROXIDE SUSP 30 ML UDC PO PRN (05:12)
[2024-06-30] MEDS ORDERED: IBUPROFEN 200 MG TAB PO PRN (05:12)
[2024-06-30] MEDS ORDERED: ALUMINUM/MAGNESIUM SUSP 30 ML UDC PO PRN (05:12)
[2024-06-30] MEDS ORDERED: ONDANSETRON INJ 2 MG/ML 2 ML VIAL IV PRN (05:12)
[2024-06-30] MEDS ORDERED: POLYETHYLENE (MIRALAX) 17 GM PACK PO PRN (05:12)
[2024-06-30] MEDS: ALBUT/IPRATROP 3MG/0.5MG NEB 3 ML VIAL NEB SCH (07:09)
--- OUTSIDE RECORDS SUMMARY | 2024-06-30 07:22 | External Medical Summary | Continuity of Care Document ---
Author Name Unknown Organization [facility] [place] [id number] [place] [phone] Care Team Providers Care Lotus Notes Developer Name Role Phone Austin Cui Primary Care Physician [phone] [id number] Date(s): 06/22/24 - 06/22/24 [facility] [address] [facility] [place] [id number] [address] [address] [phone] Encounter Diagnosis Pneumonia(Discharge Diagnosis) - 06/22/24 Otitis media of right ear(Discharge Diagnosis) - 06/22/24 Asplenia(Discharge Diagnosis) - 06/22/24 ITP(Discharge Diagnosis) - 06/22/24 Asthma(Discharge Diagnosis) - 06/22/24 Discharge Disposition: Home or Self Care Attending Physician: MD Cui Joseph P Referring Physician: MD Cui Joseph P Encounter Type: Clinic Allergies, Adverse Reactions, Alerts Substance Criticality Severity Reaction Reaction Severity Status Bactrim Vomiting Active erythromycin 1 Unknown chest pain Active sulfa drugs itchy Active quinolones (fluoroquinolone antibiotics) platelets drop dramatically Active Tylenol Hives Active 1Outside Source Comment: Chest Pain Immunizations Given and Recorded Vaccine Date Status Refusal Reason SARS-CoV-2 [id number] vaccine - [id number] 03/20/23 R ecorded RSV Vaccine Unspecified 01/17/23 Recorded hepatitis A adult vaccine 04/25/22 Given hepatitis A adult vaccine 10/24/21 Given SARS-CoV-2 mRNA (tozinameran 5y-11y) 03/16/22 Ash rded SARS-CoV-2 (COVID-19) mRNA-1273 vaccine 4/1/22 R ecorded SARS-CoV-2 (COVID-19) mRNA-1273 vaccine 1 07/02/20 Recorded SARS-CoV-2 (COVID-19) mRNA-1273 vaccine 2 05/28/20 Recorded influenza virus vaccine, inactivated 01/28/21 Ash rded influenza virus vaccine, inactivated 01/20/20 Give n influenza virus vaccine, inactivated 01/17/19 Ash rded influenza virus vaccine, inactivated 02/08/18 Ash rded influenza virus vaccine, inactivated 02/16/16 Give n influenza virus vaccine, inactivated 01/24/15 Give n influenza virus vaccine, inactivated 03/22/14 Give n SARS-CoV-2 (COVID-19) ChAdOx1 vaccine 12/21/20 Rec orded meningococcal group B vaccine 09/10/19 Given meningococcal conjugate vaccine 09/10/19 Given meningococcal conjugate vaccine 08/09/11 Given zoster vaccine, inactivated 09/10/19 Given zoster vaccine, inactivated 05/07/19 Given pneumococcal 23-valent vaccine 09/10/19 Given measles/mumps/rubella virus vaccine 3 04/15/19 Giv en tetanus/diphtheria/pertuss, acel (Tdap) 03/17/19 G iven pneumococcal 13-valent vaccine 4 05/07/17 Recorded influenza virus vaccine, H1N1 5 03/18/09 Recorded 1Result Comment: Unit: Unknown Route: Intramuscularly 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 4Result Comment: 2019-01-19: Historical information-source unspecified 5Result Comment: 2021-07-28: Historical information-source unspecified Mental Status 06/22/24 Barriers to Learning one year None evide nt Mandatory Health Literacy Documentation Yes Health Literacy Communication Barriers N ever Primary Language Taiwanese Problem List Condition Confirmation Course Effective Dates Status Health Status Informant Asplenia Confirmed Active Asthma Confirmed Active Eczema Confirmed Active History of dog bite Confirmed Active History of diverticulitis Confirmed Active History of colon polyps Confirmed Active History of splenectomy Confirmed Active Presence of left artificial hip joint Confirmed Active Hypogammaglobulinemia Confirmed Active Intermittent asthma Confirmed Active ITP Confirmed Active Low back pain Confirmed Active MCKINNON (nonalcoholic steatohepatitis) Confirmed Active Psoriasis vulgaris Confirmed Active Diagnosis Diagnosis Type Effective Dates Health Status Cl inical Service Informant ITP Discharge Diagnosis 06/22/24 Non-Specified Pneumonia Discharge Diagnosis 06/22/24 Non-Specified Asthma Discharge Diagnosis 06/22/24 Non-Specified Asplenia Discharge Diagnosis 06/22/24 Non-Specified Otitis media of right ear Discharge Diagnosis 06/22/24 Non-Specified Procedures Procedure Date Related Diagnosis Body Site Status Carpal tunnel release 11/23/22 Com pleted LIVER ELASTOGRAPHY 1 10/26/22 Comp leted Chest X-ray 2 09/20/22 Completed Carpal tunnel release 08/24/22 Com pleted CTR - carpal tunnel release 08/24/22 Completed Mammogram 3 09/26/21 Completed Hip replacement 4 04/2021 Complet ed Colonoscopy 5, 6 12/01/20 Complete d Mammogram - screening 7 09/22/20 C ompleted Biopsy of liver 8, 9 08/30/20 Comp leted Ultrasound--abdomen 10 07/21/20 Co mpleted Mammogram 11 09/22/19 Completed US scan of upper abdomen 12 01/06/19 Completed 12 lead ECG (regime/therapy) 11/14/18 Completed Biopsy of breast 13 10/01/18 Compl eted Mammogram - unilaterak right digital diagnostic 14 09/29/18 Completed Shave biopsy and cauterization of skin 09/25/18 Completed Mammogram 15 09/17/18 Completed CXR - Chest X-ray 16 07/05/18 Comp leted Mammogram - screening 17 09/13/17 Completed Right ankle 18 09/13/17 Completed TOTAL HIP ARTHROPLASTY 19 06/04/17 Completed PFT - Pulmonary function tests 20 05/16/17 Completed Forearm X-ray 21 05/15/17 Complete d Shoulder X-ray 22 05/15/17 Complet ed Mammogram 09/20/16 Completed Mammogram - screening 23 09/11/16 Completed PAP test date 09/06/16 Completed Mammogram 24 09/05/15 Completed Colonoscopy 25 06/20/15 Completed XR Left Hand 26 01/10/13 Completed XR Left Wrist 27 01/10/13 Complete d FESS - Functional endoscopic sinus surgery 2009 Completed splenectomy 1996 Completed section 1987 Complete d Mammogram 28 Completed 1Interpretation: Table 1. Non fibrotic liver (F0-F1) 2Impression: No acute cardiopulmonary findings. 3No mammographic evidence for malignancy. Repeat 1 year. 4left hip 5COLO to cecum, redundant colon, 2 TC polyps 2-3 mm CF 6Pathology report showed 2 hyperplastic polyps. Repeat in 5 years. 7No mammographic evidence of malignancy. 1 year screening mammogram recommended. 8Pathology results: Liver, core biopsy: focal steatosis, chronic inflammation, and periportal fibrosis. 9Successful US guided 18-gauge core bipsy of the lateral segment of the left hepatic lobe. 101) mild hepatic steatosis. 2) Normal gallbladder. No gallstones. 11ACR BI RADS CAT 1 NEGATIVE 12Unremarkable sonographic assessment of right upper quadrant. 13Right breast stereotactic/ana guided biopsy of a loose grouping of linear and punctate calcifications in right lower inner breast, with metallic biopsy marker placed at site. 14acr bi-rads category 4: suspicious right breast stereotactic guided biposy is recoomended for 13 mm loose grouping of faint punctate and linear calcifcations in the lower inner middle one third of the right breast 15no other suspicious mass 16no acute process 17There is no mammogrpahic evidence of malignancy. A 1 year screening mammogram is recommended. 18x-ray Mild soft tissue swelling without fx. 19Left 20Pre-bronchodilator spirometry suggests the presence of minimal small aiarways disease. There was a modest response post-bronchodilator suggesting the presence of early reversible airways disease. Lung volumes and diffusion capacity were well within normal limits. 21no acute fracture or subluxation 22no fractures or dislocations identified 23BI-RADS 0: incomplete study The asymmetry in the superior, posterior left breast needs additional evaluation. 24There is no mammographic evidence of malignancy. A 1 year screening mammogram is recommended. 25diverticulosis in sigmoid colon 4mm rectal polyp-resected and sent for pathology 26No acute fracture 27No acute fracture, minor arthritic change 28stereotactic guided biopsy status post right breast stereotactic/tomosynthesis guided biopsy of a loose grouping of linear andpunctate calcifications in the riht lower inner breast, with metallic biopsy marker placed at the site. Vital Signs Most recent to oldest [Reference Range]: 1 Patient Weight 96.2 kg (06/22/24 2:28 PM) Temperature [36.5-37.9 DegC] 37.0 DegC (06/22/24 2:28 PM) Blood Pressure 138/82mmHg (06/22/24 2:28 PM) BP Location # 1 Right Arm (06/22/24 2:28 PM) Social History Social History Type Response Tobacco Former smoker, 0.2 p er day. 18 year(s). Total pack years: 2. Started age 18 Years. Stopped age 36 Years. Smoking Status Former Smoker, quit > 1 yr Sex Female Sex Representation Female (finding) Implantable Device List Procedure Provider Procedure Date Device Type Site Unknown Unknown 05/26/21 Unknown Unknown Device Identifier Serial Number Lot or Batch Number Manufacturing Date Expiration Date Distinct Identification Code MRI Safety Implantable Status Assigning Authority Unknown Unknown [id number] Unknown 10/26/25 Unknown Unknown Active Unkn own Unknown Unknown [id number] Unknown 01/27/24 Unknown Unknown Active Unk nown Patient Care team information Care Team Personnel Name: MD Ewa, Anais Position: Physician - Hem/Onc Member Role: Lifetime Relationship Address: [address] [place] [address] Telecom: [phone] Name: [place] Gastelum Tara Position: Nurse Pract - Family Med Member Role: Lifetime Relationship Address: [address] [place] [address] Telecom: [phone] Name: [place] Short Janet Griffith Position: Nurse Pract - Pulmonary Med Member Role: Lifetime Relationship Address: [address] [place] [address] Telecom: [phone] Name: Meredith Agarwal Position: Quality Services Member Role: HIS Lifetime Name: MD Basilia, Austin Wilkes Position: Physician - Family Med Member Role: Primary Care Provider Address: [address] [place] [address] Telecom: [phone] Care Team Related Persons Name: SHERRY GOODMAN Insurance Providers Guarantor name: ARMAND GOODMAN Health Plan Information #: 1 Payer: [employer] Member Number: [id number] Policy Number: NA Group Number: [id number] Health Plan Information #: 2 Payer: [employer] Member Number: NA Policy Number: NA Group Number: NA Health Plan Information #: 3 Payer: [employer] Member Number: [id number] Policy Number: NA Group Number: [id number]
[2024-06-30] MEDS: methylPREDNISolone 40 MG in SYRINGE 0 ML IV SCH (08:58)
[2024-06-30] MEDS: guaiFENesin 600 MG TABCR PO SCH (08:58)
[2024-06-30] MEDS ORDERED: methylPREDNISolone 125 MG/2 ML VIAL IV SCH (09:00)
[2024-06-30] MEDS: ENOXAPARIN INJ 40 MG/0.4 ML SYR SQ SCH (13:24)
--- NOTE | 2024-06-30 15:53 | Billing Data ---
Date of Service June 30, 2024 Coding Level of Care Code 75953 INT INP/OBS CARE
--- NOTE | 2024-06-30 16:34 | Hospitalist Progress Note ---
Date of Service June 30, 2024 Assessment & Plan (1) Asthma with exacerbation: (2) Shortness of breath: (3) ITP (idiopathic thrombocytopenic purpura): (4) History of splenectomy: Plan 64 yo female PMHx asthma, immune thrombocytopenic purpura, asplenia, diverticulitis admitted due to shortness of breath. Improved breath sounds at lower lobes and decreased supplemental O2 requirement. #Asthma Exacerbation/viral URI - Continue Duonebs q6h scheduled - Continue Solumedrol 40mg IV BID - Continue Mucinex BID - Incentive spirometry, flutter valve - Supplemental O2 as needed for goal sat >/= 92%, reduced to 2L and will continue to wean - Discontinued ceftriaxone and doxycycline secondary to +RVP for RSV and human metapneumovirus #ITP CBC notable for Hbg of 16.3 and platelets at 463. Pt currently in an inflammatory state and at an increased risk for coagulation. - Recommended Lovenox- pt agreed FENGI: Regular Code status: full DVT prophylaxis: Lovenox 40mg sq Isolation: droplet Disposition: med/tele Admission and Anticipated Discharge Date Admission Date: June 30, 2024 Supervising Physician Co-Signing Physician Notes Patient seen and examined, chart reviewed, case discussed with Guera Carney PGY1 I agree with the assessment and plan as above. Patient is a 64yo female with history of asthma, fairly well controlled at baseline. Has had ongoing SOB and wheeze - managed outpatient with steroids, antibiotics. Persistent and progressive symptoms. Notes improvement since admission with less oxygen requirement On exam still has persistent wheezes but overall the patient feels better Labs and images reviewed +RSV and + Human metapneumovirus CXR with no infiltrate stop antibiotics at this time Assessment/Plan - acute exacerbation of asthma secondary to viral infection, RSV and HMPV Continue supportive medications for asthma exacerbation continue intravenous Solu-Medrol -Mucines, flutter valve, pulmonary toilet Patient agreeable to Lovenox therapy Subjective Pt is a 64 yo female with PMH asthma, ITP, and hx of splenectomy who was admitted for asthma exacerbation and supplemental oxygen requirement. Pt does not use oxygen at home. This morning, pt reports she is feeling much better this morning with improved ability to catch her breath and increased energy. Pt continues with cough. Pt denies CP, chest tightness, fever/chills, abdominal pain, nausea, vomiting, diarrhea, dizziness, joint/muscle pain, or rashes. Review of Systems Review of Systems: reviewed, per HPI Physical Exam Physical Exam: Constitutional: well-appearing, no acute distress HEENT: NCAT, no conjunctival injection CV: regular rhythm, no murmur appreciated, extremities well-perfused, no LE edema Resp: Scattered inspiratory and expiratory wheeze, good air movement to all lobes GI: soft, nondistended, nontender, BS normoactive MSK: no gross deformities appreciated Skin: warm, dry, no rash appreciated Neuro: alert, oriented, no focal neurologic deficit appreciated Results & Data Results & Data Vital Signs (Past 12 Hours) Vital Signs Pulse Pulse Pulse Resp BP Pulse Ox O2 Del Method 06/30/24 14:45 105 H 20 172/92 H 93 Nasal Cannula 06/30/24 13:02 105 H 17 92 Nasal Cannula 06/30/24 10:11 100 H 20 161/86 H 93 Room Air 06/30/24 07:32 88 06/30/24 07:12 94 H 22 92 Nasal Cannula 06/30/24 05:56 114 H 20 148/89 H 94 Nasal Cannula 06/30/24 05:52 Nasal Cannula 06/30/24 04:35 109 H O2 Flow Rate 06/30/24 14:45 2 06/30/24 13:02 2 06/30/24 10:11 2 06/30/24 07:32 06/30/24 07:12 4 06/30/24 05:56 4 06/30/24 05:52 5 06/30/24 04:35 Resident Activity Tracking Resident Involvement: Resident Care Provided Care Provided: Adult Hospital Medicine
[2024-06-30] MEDS ORDERED: DOXYCYCLINE HYCLATE 100 MG in DEXTROSE 5% MINI-B 100 ML IV SCH (18:00)
--- NOTE | 2024-06-30 19:00 | Billing Data ---
Date of Service June 30, 2024 Coding Level of Care Code 39789 SUB INP/OBS CARE
[2024-07-01] MEDS ORDERED: cefTRIAXone SODIUM 2,000 MG/50 ML BAG IV SCH (02:00)
[2024-07-01 07:05] LABS: BUN Creatinine Ratio 22.4 (10-20); Calcium 9.5 mg/dl (8.6-10.3); Creatinine Clr Calc Pharmacy 77.5 ml/min; Potassium 4.4 mmol/L (3.5-5.1)
[2024-07-01 07:06] LABS: Hematocrit (blood only) 45.4 % (37.0-47.0); Hemoglobin 15.3 g/dl (12.0-16.0); Mean Corpuscular Hemoglobin 31.1 pg (25.0-34.0); Mean Corpuscular Hgb Conc 33.7 g/dL (32.0-36.0); Mean Corpuscular Volume 92.3 fL (80.0-100.0); Mean Platelet Volume 10.8 fL (9.4-12.4); Platelet Count 480 K/uL (130-400); RDW Coefficient of Variation 15.4 % (11.5-14.5); RDW Standard Deviation 51.9 fL (36.4-46.3); Red Blood Count 4.92 M/uL (4.20-5.40); White Blood Count 35.31 K/ul (4.8-10.8)
[2024-07-01 07:12] LABS: Basophils # (auto) 0.07 K/uL (0.00-0.20); Basophils % (auto) 0.2 %; Eosinophils # (auto) 0.05 K/uL (0.00-0.50); Eosinophils % (auto) 0.1 %; Immature Granulocytes # (auto) 0.42 K/uL (0.01-0.20); Immature Granulocytes % (auto) 1.2 %; Lymphocytes # (auto) 3.71 K/uL (1.20-3.40); Lymphocytes % (auto) 10.5 %; Monocytes # (auto) 0.98 K/uL (0.11-0.59); Monocytes % (auto) 2.8 %; Neutrophils # (auto) 30.08 K/uL (1.40-6.50); Neutrophils % (auto) 85.2 %
[2024-07-01 07:22] VITALS: BP 143/81; TEMP 98.2
[2024-07-01 11:30] VITALS: RESP 18
--- NOTE | 2024-07-01 11:55 | Discharge Summary ---
Date of Service July 01, 2024 Admission HPI Per Admitting Provider 64 yo female PMHx asthma, immune thrombocytopenic purpura, asplenia, diverticulitis admitted due to shortness of breath. Roughly 4 weeks ago the patient began with shortness of breath, cough, chest tightness, and fatigue. She was seen 3 times as an outpatient and under went treatment with Augmentin for a total of 20 days in the last month. She completed a course of azithromycin. She also completed a 5 day taper course of prednisone. Over the last week she has felt her symptoms have been worsening. She has been using her albuterol inhaler, Symbicort, and nebulizer at home without improvement in her symptoms. At the time of admission she is resting comfortably while receiving DuoNeb treatment. She states that she is feeling somewhat better since admission to the emergency department. ED Course: Labs reveal leukocytosis, thrombocytosis, RVP: +RSV, +human metapneumovirus Given 1hr long Duoneb treatment 125mg Solumedrol 1g Mag Ceftriaxone and doxycycline CXR: perihilar congestion, no discrete consolidation Principal Diagnosis Asthma exacerbation, viral URI Discharge Exam Constitutional: well-appearing, no acute distress HEENT: NCAT, no conjunctival injection CV: regular rhythm, no murmur appreciated, extremities well-perfused, no LE edema Resp: Mild expiratory wheeze at right mid lung field, good air movement to all lobes GI: soft, nondistended, nontender, BS normoactive MSK: no gross deformities appreciated Skin: warm, dry, no rash appreciated Neuro: alert, oriented, no focal neurologic deficit appreciated Discharge Data Allergies Allergy/AdvReac Type Severity Reaction Status Date / Time Sulfa (Sulfonamide Allergy Severe ITCHINESS Verified 12/06/23 11:34 Antibiotics) acetaminophen Allergy Intermediate HIVES Verified 12/06/23 11:34 erythromycin base Allergy Intermediate CHEST PAINS Verified 12/06/23 11:34 sulfamethoxazole AdvReac Severe GI UPSET Verified 12/06/23 11:34 trimethoprim AdvReac Severe GI UPSET Verified 12/06/23 11:34 Quinolones AdvReac Intermediate DESTROY Verified 12/06/23 11:34 PLATELETS Consultations 06/30/24 01:58 ED Decision to Admit Stat 06/30/24 02:01 ED Decision to Admit Stat Hospital Course (1) Asthma with exacerbation: (2) Shortness of breath: (3) ITP (idiopathic thrombocytopenic purpura): (4) History of splenectomy: Plan 64 yo female PMHx asthma, immune thrombocytopenic purpura, asplenia, diverticulitis admitted due to shortness of breath. Improved breath sounds at lower lobes and decreased supplemental O2 requirement. #Asthma Exacerbation/viral URI - Continue Duonebs q6h scheduled - Continue Solumedrol 40mg IV BID - Continue Mucinex BID - Incentive spirometry, flutter valve - Supplemental O2 as needed for goal sat >/= 92%, tolerating RA at rest ordered 2 step respiratory evaluation - Discontinued ceftriaxone and doxycycline 3/4 secondary to +RVP for RSV and human metapneumovirus #ITP CBC notable for Hbg of 16.3 and platelets at 463. Pt currently in an inflammatory state and at an increased risk for coagulation. - Recommended Lovenox- received 1 dose FENGI: Regular Code status: full DVT prophylaxis: Lovenox 40mg sq Isolation: droplet Disposition: med/tele Total Time Total Time Spent Total Time Spent (In Minutes): As per attending physician's attestation Discharge Plan Discharge Items Patient Disposition: Home - Self-Care Reason For Visit: ASTHMA EXACERBATION, ? PNEUMONIA Discharge Diagnosis: Asthma exacerbation, viral URIs Activity: Resume your previous activity Non-emergency contact: Primary Care Provider Call non-emergency contact if: your symptoms worsen Follow-up/Referrals: Austin Cui MD [Primary Care Provider] - 07/07/24 4:05 pm Diet: Regular Ambulatory Orders: Complete Blood Count with Diff (Timed) Timeframe: 2 Days Location: Determined by Patient Ordered By: Guera Vazquez Attending Provider Instructions: You were admitted to the hospital due to asthma exacerbation with positive testing for RSV and Human Metapneumovirus. You were given IV steroids, nebulized albuterol, Mucinex, antibiotics and supplemental oxygen. The wheezing in your lungs improved and your were able to wean from oxygen. It was noted that your white blood cell count significantly increased on 07/01/24. In light of the fact that your were feeling better and significant improvement in your breathing and lungs, we feel this may be due primarily to the IV serious. However, you are would like you to have a CBC in the next 2 days and follow up wit your PCP. A 10 day prednisone taper has been sent in to your pharmacy. Please take 50mg for 2 days, then 40mg x 2 days, 30 mg x 2 days, 20 mg x 2 days, then 10mg x 2 days. A new prescription for ipratropium-albuterol to be used with your nebulizer has also been sent to your pharmacy. You will use this every 6 hours for the next 2 days, then as needed. You can continue Mucinex (guaifenesin) as needed to help with mucus congestion. Please make a follow up visit with your PCP in the next 7 days. Pending Studies at Discharge: No Stand-Alone Forms: My [facility], Smoking Cessation Medications and DC Order Prescriptions: New guaifenesin [Mucinex] 600 mg Tablet Extended Release 12hr 1,200 mg PO BID Qty: 30 0RF ipratropium-albuterol 0.5 mg-3 mg(2.5 mg base)/3 mL Solution For Nebulization 3 ml NEB Q6R Qty: 90 0RF Rx Instructions: Use every 6 hours for 2 days, then as needed prednisone 10 mg tablet 10 mg PO DIRECTED Qty: 30 0RF Rx Instructions: see taper instructions 50 mg x 2 days, 40mg x 2 days, 30mg x 2 days, 20mg x 2 days, 10mg x 2 days Continued ipratropium-albuterol 0.5 mg-3 mg(2.5 mg base)/3 mL solution for nebulization 3 ml INH QID PRN (Reason: shortness of breath or wheezing) Qty: 180 2RF albuterol sulfate [Ventolin HFA] 90 mcg/actuation HFA aerosol inhaler 2 puff INHALATION Q6H PRN (Reason: Shortness Of Breath Or Wheezing) Qty: 18 5RF triamcinolone acetonide 0.1 % cream 1 applic topical DAILY PRN (Reason: .flare ups) ibuprofen [Advil] 200 mg Tablet 400 mg PO Q6H PRN (Reason: Pain) budesonide-formoterol 160-4.5 mcg/actuation HFA aerosol inhaler 2 puff INHALATION BID Discontinued amoxicillin-pot clavulanate 875-125 mg tablet 1 tab PO Q12 Discharge Orders: Discharge Order (Routine); Ordered 07/01/24 Ordered By: Guera Carney Admission Data Admit Date/Time: 06/30/24 02:35 Attending Provider: Steve Wesley Admit Provider: Yusuf Andujar Primary Care Provider: Austin Cui Other Providers: Nelsy Harry Other Interventions: Discharge Summary Assessment (RN) Last Done: 07/01/24 15:55 Supervising Physician Co-Signing Physician Notes Patient seen and examined, chart reviewed, case discussed with Guera Carney PGY1 I agree with the assessment and plan as above. Patient is a 64yo female with history of asthma, fairly well controlled at baseline. Has had ongoing SOB and wheeze - managed outpatient with steroids, antibiotics. Persistent and progressive symptoms. Really no longer requiring oxygen even with ambulation On exam still has significantly fewer wheezes & overall the patient feels better Labs and images reviewed marked leukocytosis no evidence of diarrhea felt to be probably leukemoid reaction from steroids follow with outpatient labs +RSV and + Human metapneumovirus CXR with no infiltrate stop antibiotics at this time Assessment/Plan - acute exacerbation of asthma secondary to viral infection, RSV and HMPV Continue supportive medications for asthma exacerbation to discharge will continue nebulizers and prednisone taper with outpatient laboratory follow-up for leukocytosis -Mucines, flutter valve, pulmonary toilet Greater than 30 minutes were required to prepare this discharge summary Resident Activity Tracking Resident Involvement: Resident Care Provided Care Provided: Adult Hospital Medicine
[2024-07-01 13:43] VITALS: O2SAT 96
[2024-07-01 16:00] VITALS: PULSE 71
--- NOTE | 2024-07-01 17:24 | Billing Data ---
Date of Service July 01, 2024 Coding Level of Care Code 81349 INP/OBS DISCH >30 MIN
--- NOTE | 2024-07-01 20:49 | Electrocardiogram Report ---
Test Reason : Blood Pressure : */* mmHG Vent. Rate : 90 BPM Atrial Rate : 90 BPM P-R Int : 132 ms QRS Dur : 78 ms QT Int : 334 ms P-R-T Axes : 73 24 77 degrees QTcB Int : 408 ms Normal sinus rhythm Possible Left atrial enlargement Borderline ECG When compared with ECG of 14-Nov-2018 02:33, No significant change was found Confirmed by Angel Luis Macario ([id number]) on 07/01/2024 8:49:21 PM Referred By: REFERRED SELF Confirmed By: Angel Luis Macario
--- NOTE | 2024-07-03 09:42 | Coding Query ---
To promote full compliance with coding requirements relating to patient care, provider participation is requested in all cases of preventive maintenance engineer uncertainty. Please assist us with the question(s) below: Coding Question(s): The diagnosis below was documented in the H&P then subsequently fell off all further documentation. Please indicate if it is still a possible diagnosis or ruled out. Physician's Response(s): PNEUMONIA ( ) Diagnosed and POA ( ) Diagnosed and not POA ( ) Ruled out ( ) Other (please specify) Please also indicate any causal condition if known ( ) Pneumonia due to human metapneumovirus ( ) Pneumonia due to RSV ( ) Penumonia unspecified (xxxx ) Not applicable, pneumonia ruled out ( ) Other, please specify MTDD
== END 2024-07-01 16:33 | disposition home or self-care (01) | DRG 202 ==
LOC: ED 23:52 → SUATTDRO 06-30 02:35 → EDINP 06-30 02:35 → 2W 06-30 05:12